=== PATIENT | female | born 1945 | race Caucasian/White ===

== ENCOUNTER 2017-07-30 16:39 | Emergency (ER) | payer MEDICARE, OTHER ==
[2017-07-30] MEDS ORDERED: SODIUM CHLORIDE 0.9% 1,000 ML IV ONE (17:30)
--- NOTE | 2017-07-30 17:43 | ED Physician Documentation ---
History of Present Illness - Stated complaint Stated Complaint: General med eval - Chief complaint Chief Complaint: General - History obtained from History obtained from: Patient, Family - History of Present Illness Timing: Today Pain level max: 0 Pain level now: 0 Improved by: nothing Worsened by: nothing - Additonal information Additional information: Patient is a 72-year-old female recently moved to the [place] who is being treated for metastatic breast cancer with chemotherapy at [facility]. She is under palliative care as well. Family noticed her to be slightly confused today, slower to respond and slower to move around. She uses a cane normally. No fevers. No abdominal pain. No chest pain. No fall. No head injury. No headache. No medication changes. No focal neurological deficits Review of Systems Ten Systems: 10 systems reviewed and negative Constitutional: denies: Fever, Chills Ears: denies: Ear pain Nose: denies: Rhinorrhea / runny nose, Congestion Throat: denies: Sore throat Cardiac: denies: Chest pain / pressure Respiratory: denies: Cough GI: denies: Nausea, Vomiting, Diarrhea Skin: denies: Rash Musculoskeletal: denies: Neck pain, Back pain Neurologic: denies: Focal weakness, Numbness, Seizure, Headache PD PAST MEDICAL HISTORY - Past Medical History Past Medical History: Yes Cardiovascular: Hypertension Respiratory: COPD Endocrine/Autoimmune: Type 2 diabetes 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 Musculoskeletal: Other - Past Surgical History Past Surgical History: Yes General: Cholecystectomy, Appendectomy HEENT: Tonsil/Adenoidectomy - Present Medications Home Medications: Ambulatory Orders Medication Instructions Recorded Confirmed Atorvastatin [Lipitor] 80 mg 07/30/17 Cephalexin [Keflex] 500 mg PO Q6H #28 capsule 07/30/17 Ibuprofen 400 mg PO BID 07/30/17 07/30/17 Insulin NPH Hum/Reg Insulin Hm 100 unit 07/30/17 [Novolin 70-30 100 Unit/ml Vial] Sertraline HCl 100 07/30/17 - Allergies Allergies/Adverse Reactions: Allergies Allergy/AdvReac Type Severity Reaction Status Date / Time No Known Drug Allergies Allergy Verified 07/30/17 17:02 - Social History Does the pt smoke?: No Smoking Status: Never smoker Does the pt have substance abuse?: No - Immunizations Immunizations are current?: Yes PD ED PE NORMAL - Vitals Vital signs reviewed: Yes - General General: Alert and oriented X 3, No acute distress, Well developed/nourished - HEENT HEENT: PERRL, Moist mucous membranes - Neck Neck: Supple, no meningeal sign - Cardiac Cardiac: RRR, Strong equal pulses - Respiratory Respiratory: No respiratory distress, Clear bilaterally - Abdomen Abdomen: Soft, Non tender, Non distended - Back Back: No CVA TTP, No spinal TTP - Derm Derm: Warm and dry, No rash - Extremities Extremities: No edema, No calf tenderness / cord - Neuro Neuro: Alert and oriented X 3, department clinician 2-12 intact, No motor deficit, No sensory deficit, Normal speech Eye Opening: Spontaneous Motor: Obeys Commands Verbal: Oriented GCS Score: 15 - Psych Psych: Normal mood, Normal affect Results - Vitals Vitals: Vital Signs - 24 hr 07/30/17 07/30/17 07/30/17 16:52 17:14 18:32 Temperature 36.3 C L Heart Rate 98 87 79 Respiratory 16 15 14 Rate Blood Pressure 143/85 H 132/89 H 126/71 O2 Saturation 94 94 93 07/30/17 07/30/17 18:52 19:15 Temperature 36.6 C Heart Rate 80 79 Respiratory 13 14 Rate Blood Pressure 126/81 H 144/79 H O2 Saturation 91 L 95 Oxygen O2 Source Room air - Labs Labs: Laboratory Tests 07/30/17 07/30/17 07/30/17 17:00 17:35 17:35 WBC 3.7 L RBC 4.19 L Hgb 12.8 Hct 37.8 MCV 90.1 MCH 30.6 MCHC 33.9 RDW 15.6 H Plt Count 122 L MPV 9.2 Neut # (Auto) 2.3 Lymph # (Auto) 0.9 L [facility] # (Auto) 0.3 Eos # (Auto) 0.0 Baso # (Auto) 0.0 Absolute Nucleated RBC 0.00 Nucleated RBC % 0.0 Sodium 137 Potassium 3.6 Chloride 101 Carbon Dioxide 27 Anion Gap 9.0 BUN 13 Creatinine 0.7 Estimated GFR (MDRD) 82 L Glucose 176 H POC Whole Bld Glucose 199 H Calcium 8.9 Total Bilirubin 0.8 AST 37 ALT 24 Alkaline Phosphatase 139 H Troponin I Total Protein 6.9 Albumin 3.9 Globulin 3.0 Albumin/Globulin Ratio 1.3 Lipase 20 L Urine Color Urine Clarity Urine pH Ur Specific [place] Urine Protein Urine Glucose (UA) Urine Ketones Urine Occult Blood Urine Nitrite Urine Bilirubin Urine Urobilinogen Ur Leukocyte Esterase Urine RBC Urine WBC Ur Squamous Epith Cells Urine Bacteria Ur Microscopic Review Urine Culture Comments 07/30/17 07/30/17 17:35 18:00 WBC RBC Hgb Hct MCV MCH MCHC RDW Plt Count MPV Neut # (Auto) Lymph # (Auto) [facility] # (Auto) Eos # (Auto) Baso # (Auto) Absolute Nucleated RBC Nucleated RBC % Sodium Potassium Chloride Carbon Dioxide Anion Gap BUN Creatinine Estimated GFR (MDRD) Glucose POC Whole Bld Glucose Calcium Total Bilirubin AST ALT Alkaline Phosphatase Troponin I < 0.04 Total Protein Albumin Globulin Albumin/Globulin Ratio Lipase Urine Color YELLOW Urine Clarity CLOUDY Urine pH 6.0 Ur Specific [place] >=1.030 H Urine Protein TRACE Urine Glucose (UA) NEGATIVE Urine Ketones NEGATIVE Urine Occult Blood MODERATE H Urine Nitrite NEGATIVE Urine Bilirubin NEGATIVE Urine Urobilinogen 0.2 (NORMAL) Ur Leukocyte Esterase SMALL H Urine RBC 6-10 H Urine WBC 11-25 H Ur Squamous Epith Cells NONE SEEN Urine Bacteria Many H Ur Microscopic Review INDICATED Urine Culture Comments INDICATED - Rads (name of study) head CT Radiology: Prelim report reviewed, EMP read contemporaneously, See rad report ( Permeative, destructive malignant process involving the left temporoparietal occipital bones with minimal encroachment on intracranial structures. Consider contrast-enhanced MRI for further evaluation. No acute infarction or hemorrhage ) PD MEDICAL DECISION MAKING - ED course Complexity details: reviewed results, re-evaluated patient, considered differential, d/w patient, d/w family ED course: Patient is a 72-year-old female who presents to the emergency department with a UTI today. Given IV Rocephin and IV fluids. Feels better. Confusion seemed to improve in the emergency department and she is ambulating better with her cane. Family thinks that she is closer to her normal baseline. No evidence of focal neurological deficit. NIH stroke scale of 0. No acute findings on head CT. Family states that the lesion on head CT and the bone is chronic and unchanged. Will place on antibiotics for home. Patient and family counseled regarding signs and symptoms for which I believe and urgent re-evaluation would be necessary. Patient with good understanding of and agreement to plan and is comfortable going home at this time This document was made in part using voice recognition software. While efforts are made to proofread this document, sound alike and grammatical errors may occur. - Sepsis Event Vital Signs: Vital Signs - 24 hr 07/30/17 07/30/17 07/30/17 16:52 17:14 18:32 Temperature 36.3 C L Heart Rate 98 87 79 Respiratory 16 15 14 Rate Blood Pressure 143/85 H 132/89 H 126/71 O2 Saturation 94 94 93 07/30/17 07/30/17 18:52 19:15 Temperature 36.6 C Heart Rate 80 79 Respiratory 13 14 Rate Blood Pressure 126/81 H 144/79 H O2 Saturation 91 L 95 Oxygen O2 Source Room air Departure - Departure Disposition: Home, Self Care Clinical Impression: UTI (urinary tract infection) Qualifiers: Urinary tract infection type: acute cystitis Hematuria presence: without hematuria Qualified Code(s): N30.00 - Acute cystitis without hematuria Condition: Good Instructions: ED UTI Cystitis Female Follow-Up: your,doctor in 1 week [Other] Prescriptions: Cephalexin [Keflex] 500 mg PO Q6H #28 capsule Comments: Take all antibiotics until gone. Return if Destiny worsens. Discharge Date/Time: 07/30/17 19:15
[2017-07-30 18:06] LABS: BASOPHILS % (AUTO) 1.3 %; EOSINOPHILS % (AUTO) 0.8 %; HGB - HEMOGLOBIN 12.8 g/dL (12.0-16.0); LYMPHOCYTES # (AUTO) 0.9 10^3/uL (1.5-3.5); LYMPHOCYTES % (AUTO) 24.7 %; MEAN CORPUSCULAR HEMOGLOBIN 30.6 pg (27.0-31.0); MEAN CORPUSCULAR HGB CONC 33.9 g/dL (32.0-36.0); MEAN CORPUSCULAR VOLUME 90.1 fL (81.0-99.0); MEAN PLATELET VOLUME 9.2 fL (7.9-10.8); MONOCYTES # (AUTO) 0.3 10^3/uL (0.0-1.0); MONOCYTES % (AUTO) 9.4 %; NEUTROPHILS # (AUTO) 2.3 10^3/uL (1.5-6.6); NEUTROPHILS % (AUTO) 63.8 %; PLT - PLATELET COUNT 122 10^3/uL (130-450); RED BLOOD COUNT 4.19 10^6/uL (4.20-5.40); RED CELL DISTRIBUTION WIDTH 15.6 % (12.0-15.0); WHITE BLOOD COUNT 3.7 x10^3/uL (4.8-10.8)
--- NOTE | 2017-07-30 18:07 | CT Report ---
Procedure Date: 07/30/2017 Accession Number: [id number] / [id number] Procedure: CT - Head W/O CPT Code: FULL RESULT: EXAM: CT HEAD EXAM DATE: 07/30/2017 05:54 PM. CLINICAL HISTORY: ALOC, h/o brain mets. COMPARISON: None. TECHNIQUE: Multiaxial CT images were obtained from the foramen magnum to the vertex. Reformats: Coronal. IV contrast: None. In accordance with CT protocol optimization, one or more of the following dose reduction techniques were utilized for this exam: automated exposure control, adjustment of mA and/or KV based on patient size, or use of iterative reconstructive technique. FINDINGS: Parenchyma: Patchy periventricular and subcortical low density white matter changes. No evidence of acute infarction or hemorrhage. Extraaxial Spaces: Normal for age. No subdural or epidural collections identified. Ventricles: Normal in size and position. Sinuses and Orbits: Imaged paranasal sinuses, orbits, and mastoids show no significant abnormality. Bones: Permeative distractive lesion involving the posterior left temporoparietal and occipital bones. There is soft tissue thickening along the outer skull table with some intracranial extension however no significant cerebral mass effect. Other: None. IMPRESSION: 1. Permeative, destructive malignant process involving the left temporoparietal occipital bones with minimal encroachment on intracranial structures. Consider contrast-enhanced MRI for further evaluation. 2. No acute or infarction or hemorrhage. RADIA
[2017-07-30 18:19] LABS: BILIRUBIN,URINE NEGATIVE (NEGATIVE); GLUCOSE, URINE (UA) NEGATIVE (NEGATIVE); KETONES,URINE (UA) NEGATIVE (NEGATIVE); LEUKOCYTE ESTERASE, URINE SMALL (NEGATIVE); NITRITE,URINE NEGATIVE (NEGATIVE); OCCULT BLOOD,URINE MODERATE (NEGATIVE); PROTEIN,URINE TRACE mg/dL (NEGATIVE); UROBILINOGEN,URINE 0.2 (NORMAL) E.U./dL (NORMAL)
[2017-07-30 18:20] LABS: ALBUMIN 3.9 g/dL (3.2-5.5); ALBUMIN/GLOBULIN RATIO 1.3 (1.0-2.2); BILIRUBIN,TOTAL 0.8 mg/dL (0.2-1.0); CALCIUM 8.9 mg/dL (8.5-10.3); CREATININE 0.7 mg/dL (0.4-1.0); TOTAL PROTEIN 6.9 g/dL (6.7-8.2)
[2017-07-30 18:30] LABS: CLARITY,URINE CLOUDY (CLEAR)
[2017-07-30 18:31] LABS: BACTERIA,URINE Many /HPF (None Seen); SQUAMOUS EPITHELIAL CELL,UR NONE SEEN (<= Few)
[2017-07-30] MEDS ORDERED: cefTRIAXone 1 GM VIAL IVP STA (18:42)
[2017-07-30 19:17] VITALS: BP 144/79
== END 2017-07-30 19:15 | disposition home or self-care (01) ==
LOC: ED 16:39
DX: N30.00 Acute cystitis without hematuria (principal); I10 Essential (primary) hypertension; E11.9 Type 2 diabetes mellitus without complications; C50.919 Malignant neoplasm of unspecified site of unspecified female breast; Z79.4 Long term (current) use of insulin
CPT/HCPCS: 36415; 51701; 70450; 80053; 81001; 81003; 83690; 84484; 85025; 87077; 87086; 87181; 96374; 99284

== ENCOUNTER 2017-09-06 15:08 | Emergency (ER) | payer MEDICARE ==
[2017-09-06 15:17] VITALS: BP 127/79
--- NOTE | 2017-09-06 16:13 | XRAY Report ---
Procedure Date: 09/06/2017 Accession Number: [id number] / [id number] Procedure: XR - Shoulder 3 View RT CPT Code: FULL RESULT: EXAM: RIGHT SHOULDER RADIOGRAPHY EXAM DATE: 09/06/2017 03:52 PM. CLINICAL HISTORY: Pain right shoulder while reaching. Additional history of metastatic cancer COMPARISON: None. TECHNIQUE: 3 views. FINDINGS: Bones: Minimally displaced and angulated transverse fracture of the distal third of the clavicle without intra-articular involvement. Proximal fracture fragment is displaced approximately 1 cortical width superiorly with minimal apex superior angulation. No additional fracture demonstrated. Diffuse permeative appearance of the visualized osseous structures, particularly the humerus, scapula and clavicle, though also likely the ribs, in keeping with history of metastatic disease. Joints: No dislocation/subluxation. Minimal osteophytic spurring at both the acromioclavicular and glenohumeral joints. Soft tissues: Visualized hemithorax is unremarkable. IMPRESSION: Minimally displaced and angulated transverse pathologic fracture of the distal third of the clavicle. RADIA
--- NOTE | 2017-09-06 16:19 | ED Physician Documentation ---
PD HPI UPPER EXT INJURY - Stated complaint Stated Complaint: GLF/RT SHOULDER PX - Chief complaint Chief Complaint: Ext Problem - History obtained from History obtained from: Patient, Family - History of Present Illness Location: Right, Shoulder Type of injury: Twist (she just reached out to pull an object and felt a pop at clavicle area. Pain with ROM shoulder.). 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 Musculoskeletal: Other - Past Surgical History Past Surgical History: Yes General: Cholecystectomy, Appendectomy HEENT: Tonsil/Adenoidectomy - Present Medications Home Medications: Ambulatory Orders Medication Instructions Recorded Confirmed Atorvastatin [Lipitor] 80 mg 07/30/17 Cephalexin [Keflex] 500 mg PO Q6H #28 capsule 07/30/17 Ibuprofen 400 mg PO BID 07/30/17 07/30/17 Insulin NPH Hum/Reg Insulin Hm 100 unit 07/30/17 [Novolin 70-30 100 Unit/ml Vial] Sertraline HCl 100 07/30/17 HYDROcod/ACETAM 5/325 [Martha 5/325] 1 tab PO Q6H PRN #15 tablet 09/06/17 - Allergies Allergies/Adverse Reactions: Allergies Allergy/AdvReac Type Severity Reaction Status Date / Time No Known Drug Allergies Allergy Verified 09/06/17 15:17 - Social History Does the pt smoke?: No Smoking Status: Never smoker Does the pt have substance abuse?: No - Immunizations Immunizations are current?: Yes PD ED PE NORMAL - Vitals Vital signs reviewed: Yes - General General: Alert and oriented X 3, No acute distress, Well developed/nourished - Derm Derm: Normal color, Warm and dry - Extremities Extremities: Other (right distal clavicle tender. Decreased ROM of the shoulder. ) - Neuro Neuro: No motor deficit, No sensory deficit Results - Vitals Vitals: Oxygen O2 Source Room air PD MEDICAL DECISION MAKING - ED course Complexity details: reviewed results (pathologic clavicle fracture - likely poor healing. Consider surgical options if remains symptomatic. ), considered differential, d/w patient - Sepsis Event Vital Signs: Oxygen O2 Source Room air Departure - Departure Disposition: 01 Home, Self Care Clinical Impression: Metastatic breast cancer Clavicle fracture Qualifiers: Encounter type: initial encounter Clavicle location: shaft Fracture type: closed Fracture alignment: nondisplaced Laterality: right Qualified Code(s): S42.024A - Nondisplaced fracture of shaft of right clavicle, initial encounter for closed fracture Condition: Stable Record reviewed to determine appropriate education?: Yes Instructions: ED Fx Clavicle Follow-Up: [facility] [Provider Group] Prescriptions: HYDROcod/ACETAM 5/325 [Martha 5/325] 1 tab PO Q6H PRN #15 tablet PRN Reason: Pain Comments: Use a sling for comfort for the shoulder and avoid overhead reaching, push pull , heavy lifting. Light use of the arm and use of the wrist and hand are okay. The fracture does appear to be at the site of a bone lesion from your cancer. It therefore may not heal enough to be solid. Follow-up with orthopedics in about 1-2 weeks to see how it is doing. If it is not healing and continues with symptoms, there could be potential surgical interventions such as even removing the end of the collarbone so does not continue to hurt. Discharge Date/Time: 09/06/17 17:30
[2017-09-06] MEDS ORDERED: ACETAMINOPHEN 325 MG TABLET PO STA (16:40)
[2017-09-06] MEDS ORDERED: traMADol 50 MG TABLET PO STA (16:40)
== END 2017-09-06 17:30 | disposition home or self-care (01) ==
LOC: ED 15:08
DX: S42.024A Nondisplaced fracture of shaft of right clavicle, initial encounter for closed fracture (principal); X50.1XXA Overexertion from prolonged static or awkward postures, initial encounter; Y92.009 Unspecified place in unspecified non-institutional (private) residence as the place of occurrence of the external cause; C79.9 Secondary malignant neoplasm of unspecified site; I10 Essential (primary) hypertension; J44.9 Chronic obstructive pulmonary disease, unspecified; E11.9 Type 2 diabetes mellitus without complications; Z85.3 Personal history of malignant neoplasm of breast; Z79.4 Long term (current) use of insulin
CPT/HCPCS: 73030; 99283; A9270

== ENCOUNTER 2017-10-27 11:04 | Outpatient (CLI) | payer MEDICARE | END 2017-10-27 11:05 | disposition critical access hospital (66) | LOC: EMS 11:04 | PROVIDERS: ATTEND Surgery | DX: M79.601 Pain in right arm (principal) | CPT/HCPCS: A0425; A0427 ==

== ENCOUNTER 2017-10-27 11:25 | Emergency (ER) | payer MEDICARE ==
[2017-10-27] MEDS ORDERED: HYDROmorphone 1 MG/ML CARPUJECT IVP STA (12:16)
--- NOTE | 2017-10-27 12:18 | ED Physician Documentation ---
PD HPI UPPER EXT INJURY - Stated complaint Stated Complaint: R ARM PAIN - Chief complaint Chief Complaint: Ext Problem - History obtained from History obtained from: Patient, Family - History of Present Illness Location: Right, Arm Type of injury: Other (states has fallen several times in the past.) Where injury occurred: Home Timing - onset: Other (increased pain today) Timing - details: Gradual onset Pain level max: 8 Pain level now: 8 Improved by: Rest, Ice, Immobilization Worsened by: Moving, Palpating Associated symptoms: No: Weakness, Numbness, Tingling, Swelling Contributing factors: Other (metastatic breast cancer to bone) - Additonal information Additional information: currently undergoing radiation treatment. Patient states that she occasionally takes hydrocodone, 5 mg as needed for pain. Otherwise uses CBD oil. 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 Musculoskeletal: Other - Past Surgical History Past Surgical History: Yes General: Cholecystectomy, Appendectomy HEENT: Tonsil/Adenoidectomy - Present Medications Home Medications: Ambulatory Orders Medication Instructions Recorded Confirmed Insulin NPH Hum/Reg Insulin Hm 30 unit SQ BID 07/30/17 10/27/17 [Novolin 70-30 100 Unit/ml Vial] Sertraline HCl 100 mg PO DAILY 07/30/17 10/27/17 Atorvastatin Calcium 80 mg PO DAILY 10/27/17 10/27/17 Hydrocodone/Acetaminophen 1 tab PO Q6H PRN MDD 4 10/27/17 10/27/17 [Hydrocodone-Acetamin 10-325 mg] Omeprazole [PriLOSEC] 20 mg PO DAILY 10/27/17 10/27/17 amLODIPine [Norvasc] 5 mg PO DAILY 10/27/17 10/27/17 - Allergies Allergies/Adverse Reactions: Allergies Allergy/AdvReac Type Severity Reaction Status Date / Time No Known Drug Allergies Allergy Verified 09/06/17 15:17 - Social History Does the pt smoke?: No Smoking Status: Never smoker Does the pt have substance abuse?: No - Immunizations Immunizations are current?: Yes PD ED PE NORMAL - Vitals Vital signs reviewed: Yes - General General: Alert and oriented X 3, No acute distress - HEENT HEENT: Atraumatic, PERRL, Moist mucous membranes - Neck Neck: Supple, no meningeal sign, No bony TTP - Cardiac Cardiac: RRR - Respiratory Respiratory: No respiratory distress, Clear bilaterally - Abdomen Abdomen: Soft, Non tender, Non distended - Back Back: No spinal TTP - Derm Derm: Warm and dry, No rash - Extremities Extremities: Other (TTP over the entire R humerus. unable to move 2/2 pain. No pain over forearm or clavicle. NVI) - Neuro Neuro: Alert and oriented X 3 - Psych Psych: Normal mood, Normal affect Results - Vitals Vitals: Vital Signs - 24 hr 10/27/17 10/27/17 10/27/17 11:28 11:41 12:40 Temperature 36.4 C L Heart Rate 106 H 98 89 Respiratory 16 16 16 Rate Blood Pressure 139/96 H 127/88 H 142/101 H O2 Saturation 94 97 94 10/27/17 10/27/17 10/27/17 15:53 16:57 20:00 Temperature Heart Rate 96 93 102 H Respiratory 18 14 18 Rate Blood Pressure 122/80 120/81 H 105/69 O2 Saturation 96 97 100 10/27/17 22:01 Temperature Heart Rate 90 Respiratory 16 Rate Blood Pressure 107/69 O2 Saturation 100 Oxygen O2 Source Room air - Labs Labs: Laboratory Tests 10/27/17 10/27/17 10/27/17 12:36 12:36 15:36 WBC 3.4 L RBC 4.27 Hgb 12.8 Hct 37.4 MCV 87.6 MCH 30.0 MCHC 34.3 RDW 15.7 H Plt Count 83 L MPV 9.1 Neut # (Auto) 2.6 Lymph # (Auto) 0.4 L [place] # (Auto) 0.3 Eos # (Auto) 0.1 Baso # (Auto) 0.0 Absolute Nucleated RBC 0.00 Nucleated RBC % 0.0 Sodium 141 Potassium 3.6 Chloride 104 Carbon Dioxide 29 Anion Gap 8.0 BUN 11 Creatinine 0.7 Estimated GFR (MDRD) 82 L Glucose 196 H Calcium 10.1 Total Bilirubin 1.0 AST 39 ALT 16 Alkaline Phosphatase 123 H Total Protein 7.3 Albumin 4.2 Globulin 3.1 Albumin/Globulin Ratio 1.4 Lipase 22 Urine Color YELLOW Urine Clarity CLEAR Urine pH 6.0 Ur Specific [place] 1.020 Urine Protein NEGATIVE Urine Glucose (UA) NEGATIVE Urine Ketones NEGATIVE Urine Occult Blood NEGATIVE Urine Nitrite NEGATIVE Urine Bilirubin NEGATIVE Urine Urobilinogen 0.2 (NORMAL) Ur Leukocyte Esterase NEGATIVE Ur Microscopic Review NOT INDICATED Urine Culture Comments NOT INDICATED - Rads (name of study) R humerus xray Radiology: Prelim report reviewed, EMP read contemporaneously, See rad report (Humerus fracture ) Procedures - Splint (location) R upper arm Splint applied by: Physician, Tech Type of splint: Sugar tong Other: Patient tolerated well, No complications, Neurovascular intact, Sling provided PD MEDICAL DECISION MAKING - ED course Complexity details: reviewed results, re-evaluated patient, considered differential, d/w patient, d/w family, d/w fitness consultant ED course: Patient is a 72-year-old female who presents to the emergency department with a right midshaft humerus fracture. Placed in a sugar tong splint of the upper extremity and placed in a sling. We will have her follow-up with orthopedics. Neurovascularly intact. She does have metastatic breast cancer to the bones as well. Family was concerned about being able to take care of her, therefore social work was consulted and respite placement was found with [facility]. Orders were written and further orders will be written by her PCP. Patient and family counseled regarding signs and symptoms for which I believe and urgent re- evaluation would be necessary. Patient with good understanding of and agreement to plan and is comfortable going home at this time This document was made in part using voice recognition software. While efforts are made to proofread this document, sound alike and grammatical errors may occur. - Sepsis Event Vital Signs: Vital Signs - 24 hr 10/27/17 10/27/17 10/27/17 11:28 11:41 12:40 Temperature 36.4 C L Heart Rate 106 H 98 89 Respiratory 16 16 16 Rate Blood Pressure 139/96 H 127/88 H 142/101 H O2 Saturation 94 97 94 10/27/17 10/27/17 10/27/17 15:53 16:57 20:00 Temperature Heart Rate 96 93 102 H Respiratory 18 14 18 Rate Blood Pressure 122/80 120/81 H 105/69 O2 Saturation 96 97 100 10/27/17 22:01 Temperature Heart Rate 90 Respiratory 16 Rate Blood Pressure 107/69 O2 Saturation 100 Oxygen O2 Source Room air Departure - Departure Disposition: 01 Home, Self Care Clinical Impression: Humerus fracture Qualifiers: Encounter type: initial encounter Humerus Location: shaft Fracture type: closed Fracture morphology: transverse Fracture alignment: displaced Laterality: right Qualified Code(s): S42.321A - Displaced transverse fracture of shaft of humerus, right arm, initial encounter for closed fracture Condition: Good Instructions: ED Fx Upper Ext Follow-Up: [facility] [Provider Group] - Within 1 week your,doctor in 1 week [Other] Comments: Return if you worsen. Continue the hydrocodone as needed for pain. Follow up with orthopedics for further care.
[2017-10-27 12:41] LABS: BASOPHILS % (AUTO) 0.9 %; EOSINOPHILS # (AUTO) 0.1 10^3/uL (0.0-0.7); EOSINOPHILS % (AUTO) 1.9 %; HGB - HEMOGLOBIN 12.8 g/dL (12.0-16.0); LYMPHOCYTES # (AUTO) 0.4 10^3/uL (1.5-3.5); MEAN CORPUSCULAR HGB CONC 34.3 g/dL (32.0-36.0); MEAN CORPUSCULAR VOLUME 87.6 fL (81.0-99.0); MEAN PLATELET VOLUME 9.1 fL (7.9-10.8); MONOCYTES # (AUTO) 0.3 10^3/uL (0.0-1.0); MONOCYTES % (AUTO) 9.3 %; NEUTROPHILS # (AUTO) 2.6 10^3/uL (1.5-6.6); NEUTROPHILS % (AUTO) 75.9 %; PLT - PLATELET COUNT 83 10^3/uL (130-450); RED BLOOD COUNT 4.27 10^6/uL (4.20-5.40); RED CELL DISTRIBUTION WIDTH 15.7 % (12.0-15.0); WHITE BLOOD COUNT 3.4 x10^3/uL (4.8-10.8)
[2017-10-27] MEDS ORDERED: SODIUM CHLORIDE 0.9% 1,000 ML IV ONE (12:47)
[2017-10-27 12:58] LABS: ALBUMIN 4.2 g/dL (3.2-5.5); ALBUMIN/GLOBULIN RATIO 1.4 (1.0-2.2); CALCIUM 10.1 mg/dL (8.5-10.3); CREATININE 0.7 mg/dL (0.4-1.0); TOTAL PROTEIN 7.3 g/dL (6.7-8.2)
--- NOTE | 2017-10-27 13:12 | XRAY Report ---
Reason: fall, R arm pain Procedure Date: 10/27/2017 Accession Number: [id number] / [id number] Procedure: XR - Humerus RT CPT Code: FULL RESULT: EXAM: RIGHT HUMERUS RADIOGRAPHY EXAM DATE: 10/27/2017 12:59 PM. CLINICAL HISTORY: Fall, R arm pain. COMPARISON: None. TECHNIQUE: 2 views. FINDINGS: Bones: There is a moderately displaced fracture of the humerus diaphysis with mild telescoping of fragments. Joints: No effusions or subluxations in the visualized shoulder or elbow joints. Soft Tissues: There is overlying soft tissue swelling. IMPRESSION: Humerus fracture RADIA
[2017-10-27 15:48] LABS: BILIRUBIN,URINE NEGATIVE (NEGATIVE); GLUCOSE, URINE (UA) NEGATIVE (NEGATIVE); KETONES,URINE (UA) NEGATIVE (NEGATIVE); LEUKOCYTE ESTERASE, URINE NEGATIVE (NEGATIVE); NITRITE,URINE NEGATIVE (NEGATIVE); OCCULT BLOOD,URINE NEGATIVE (NEGATIVE); PROTEIN,URINE NEGATIVE (NEGATIVE); UROBILINOGEN,URINE 0.2 (NORMAL) E.U./dL (NORMAL)
[2017-10-27 15:59] LABS: CLARITY,URINE CLEAR (CLEAR)
[2017-10-27 22:02] VITALS: BP 107/69
[2017-10-27] MEDS ORDERED: HYDROcod/ACETAM 5/325 MG TABLET PO STA (22:02)
== END 2017-10-27 23:05 | disposition home or self-care (01) ==
LOC: EDUNIT# → ED 11:25
DX: S42.321A Displaced transverse fracture of shaft of humerus, right arm, initial encounter for closed fracture (principal); W18.30XA Fall on same level, unspecified, initial encounter; Y92.009 Unspecified place in unspecified non-institutional (private) residence as the place of occurrence of the external cause; C50.919 Malignant neoplasm of unspecified site of unspecified female breast; Z92.3 Personal history of irradiation; I10 Essential (primary) hypertension; E11.9 Type 2 diabetes mellitus without complications; Z79.4 Long term (current) use of insulin
CPT/HCPCS: 29105; 36415; 51701; 73060; 80053; 81003; 83690; 85025; 96361; 96374; 99284; A9270; J1170; 81001; 87086

== ENCOUNTER 2017-11-01 09:53 | Outpatient (CLI) | payer MEDICARE | END 2017-11-01 09:54 | disposition critical access hospital (66) | LOC: EMS 09:53 | PROVIDERS: ATTEND Surgery | DX: R53.1 Weakness (principal); R11.0 Nausea; R52 Pain, unspecified ==

== ENCOUNTER 2017-11-01 10:13 | Emergency (ER) | payer MEDICARE ==
[2017-11-01] MEDS ORDERED: SODIUM CHLORIDE 0.9% 1,000 ML IV ONE (10:26)
--- NOTE | 2017-11-01 10:30 | ED Physician Documentation ---
History of Present Illness - Stated complaint Stated Complaint: WEAKNESS - Chief complaint Chief Complaint: General - History obtained from History obtained from: Patient, EMS - History of Present Illness Timing: How many days ago (5) - Additonal information Additional information: 72-year-old female with advanced breast cancer with metastases to the bone has h ad a fall 5 days ago and fractured her right humerus. She is walker dependent and she has been at home she has been having difficulty getting in and out of bed into the bathroom. She has developed weakness and she has begun vomiting as well. She feels ill and weak. She is at home with a son the and her [id number]. Review of Systems Constitutional: reports: Fatigue, Sweats. denies: Fever Eyes: denies: Decreased vision Ears: denies: Ear pain Nose: denies: Rhinorrhea / runny nose, Congestion Throat: denies: Sore throat Cardiac: denies: Chest pain / pressure, Palpitations Respiratory: reports: Cough. denies: Dyspnea GI: reports: Nausea, Vomiting. denies: Abdominal Pain, Constipation, Diarrhea, Bloody / black stool : reports: Incontinent. denies: Dysuria, Frequency Skin: denies: Rash Musculoskeletal: reports: Extremity pain. denies: Neck pain, Back pain Neurologic: reports: Generalized weakness. denies: Focal weakness, Numbness PD PAST MEDICAL HISTORY - Past Medical History Cardiovascular: Hypertension Respiratory: COPD Endocrine/Autoimmune: Type 2 diabetes HOSIERY PAIRER: Breast cancer Musculoskeletal: Other - Past Surgical History Past Surgical History: Yes General: Cholecystectomy, Appendectomy HEENT: Tonsil/Adenoidectomy - Present Medications Home Medications: Ambulatory Orders Medication Instructions Recorded Confirmed Insulin NPH Hum/Reg Insulin Hm 30 unit SQ BID 07/30/17 10/27/17 [Novolin 70-30 100 Unit/ml Vial] Sertraline HCl 100 mg PO DAILY 07/30/17 10/27/17 Atorvastatin Calcium 80 mg PO DAILY 10/27/17 10/27/17 Hydrocodone/Acetaminophen 1 tab PO Q6H PRN MDD 4 10/27/17 10/27/17 [Hydrocodone-Acetamin 10-325 mg] Omeprazole [PriLOSEC] 20 mg PO DAILY 10/27/17 10/27/17 amLODIPine [Norvasc] 5 mg PO DAILY 10/27/17 10/27/17 - Allergies Allergies/Adverse Reactions: Allergies Allergy/AdvReac Type Severity Reaction Status Date / Time No Known Drug Allergies Allergy Verified 09/06/17 15:17 - Social History Does the pt smoke?: No Smoking Status: Never smoker Does the pt have substance abuse?: No - Immunizations Immunizations are current?: Yes PD ED PE NORMAL - Vitals Vital signs reviewed: Yes (tachy and hypertensive ) - General General: No acute distress, Well developed/nourished, Other (The patient appears pale and is slow to respond but responds appropriately ) - HEENT HEENT: Atraumatic, PERRL, EOMI - Neck Neck: Supple, no meningeal sign, No bony TTP - Cardiac Cardiac: No murmur, Other (tachy) - Respiratory Respiratory: No respiratory distress, Clear bilaterally - Abdomen Abdomen: Soft, Non tender - Back Back: No CVA TTP, No spinal TTP - Derm Derm: Normal color, Warm and dry, No rash - Extremities Extremities: No edema, Other (The right upper ext is in a sling ) - Neuro Neuro: vender 2-12 intact, No motor deficit, No sensory deficit, Other (speech is dysarthric consistent with dry mucous membranes. ) Eye Opening: Spontaneous Motor: Obeys Commands Verbal: Oriented GCS Score: 15 - Psych Psych: Normal mood, Normal affect Results - Vitals Vitals: Vital Signs - 24 hr 11/01/17 11/01/17 11/01/17 10:15 11:56 13:19 Temperature 36.9 C Heart Rate 107 H 92 91 Respiratory 14 16 16 Rate Blood Pressure 132/80 H 120/82 H 132/79 H O2 Saturation 93 97 99 Oxygen O2 Source Room air - Labs Labs: Laboratory Tests 11/01/17 11/01/17 11/01/17 10:45 10:45 10:45 WBC 3.8 L RBC 4.30 Hgb 12.8 Hct 37.3 MCV 86.6 MCH 29.8 MCHC 34.5 RDW 16.6 H Plt Count 83 L MPV 9.6 Neut # (Auto) 2.9 Lymph # (Auto) 0.4 L Hudson # (Auto) 0.5 Eos # (Auto) 0.0 Baso # (Auto) 0.0 Absolute Nucleated RBC 0.00 Nucleated RBC % 0.0 Sodium 141 Potassium 3.6 Chloride 100 L Carbon Dioxide 28 Anion Gap 13.0 BUN 23 H Creatinine 0.8 Estimated GFR (MDRD) 71 L Glucose 180 H Lactic Acid Calcium 10.5 H Total Bilirubin 1.2 H AST 56 H ALT 18 Alkaline Phosphatase 136 H Troponin I < 0.04 Total Protein 7.4 Albumin 4.1 Globulin 3.3 Albumin/Globulin Ratio 1.2 Lipase 22 Urine Color Urine Clarity Urine pH Ur Specific Boyd Urine Protein Urine Glucose (UA) Urine Ketones Urine Occult Blood Urine Nitrite Urine Bilirubin Urine Urobilinogen Ur Leukocyte Esterase Urine RBC Urine WBC Ur Squamous Epith Cells Urine Bacteria Ur Microscopic Review Urine Culture Comments 11/01/17 11/01/17 10:54 10:55 WBC RBC Hgb Hct MCV MCH MCHC RDW Plt Count MPV Neut # (Auto) Lymph # (Auto) Hudson # (Auto) Eos # (Auto) Baso # (Auto) Absolute Nucleated RBC Nucleated RBC % Sodium Potassium Chloride Carbon Dioxide Anion Gap BUN Creatinine Estimated GFR (MDRD) Glucose Lactic Acid 1.3 Calcium Total Bilirubin AST ALT Alkaline Phosphatase Troponin I Total Protein Albumin Globulin Albumin/Globulin Ratio Lipase Urine Color YELLOW Urine Clarity HAZY Urine pH 6.0 Ur Specific Boyd 1.025 Urine Protein NEGATIVE Urine Glucose (UA) NEGATIVE Urine Ketones 15 H Urine Occult Blood NEGATIVE Urine Nitrite POSITIVE H Urine Bilirubin NEGATIVE Urine Urobilinogen 0.2 (NORMAL) Ur Leukocyte Esterase NEGATIVE Urine RBC 0-5 Urine WBC 0-3 Ur Squamous Epith Cells RARE Squamous Urine Bacteria Many H Ur Microscopic Review INDICATED Urine Culture Comments INDICATED Procedures - IVC sono (time) 1020 Bedside IVC sono: IVC measures (cm) (0.82), IVC collapsed c insp (cm) (complete), Dehydration (est 2 liter deficit) PD MEDICAL DECISION MAKING - ED course Complexity details: reviewed old records, reviewed results, re-evaluated patient, considered differential, d/w patient, d/w family ED course: 72 year old female with a history of advanced metastatic breast cancer has had a fall and a fracture of her right humerus and she is walker dependent. Her family is unable to care for her at home adequately with the typical skilled nursing care of getting up and down to the bathroom. The patient has adequate pain control of her fracture. She has had a prior fracture to the clavicle on the right side and this looks like this is fractured again as well. I have spoken to the patient's oncologist Dr. Patria Troncoso and her oncology nurse Dinora Saleh at [facility]. She indicates that she has failed palliative chemotherapy and has shown disease progression on her last scans. They have discontinued chemotherapy and the patient has discontinued radiation therapy that was being given to the spine palliatively. Her oncologist indicates that hospice care is appropriate at this time. Here in the emergency department the patient is dehydrated and and she is administered saline. Her urine is checked there is no evidence of infection today. Her lungs on chest x-ray show multiple metastases and these were previously described according to her oncologist. - Sepsis Event Vital Signs: Vital Signs - 24 hr 11/01/17 11/01/17 11/01/17 10:15 11:56 13:19 Temperature 36.9 C Heart Rate 107 H 92 91 Respiratory 14 16 16 Rate Blood Pressure 132/80 H 120/82 H 132/79 H O2 Saturation 93 97 99 Oxygen O2 Source Room air Departure - Departure Disposition: 01 Home, Self Care Clinical Impression: Metastatic breast cancer, Dehydration Humerus fracture Qualifiers: Encounter type: subsequent encounter Humerus Location: shaft Fracture type: closed Fracture morphology: transverse Fracture alignment: displaced Laterality: right Fracture healing: with routine healing Qualified Code(s): S42.321D - Displaced transverse fracture of shaft of humerus, right arm, subsequent encounter for fracture with routine healing Instructions: ED Dehydration, ED Fx Upper Ext Follow-Up: Earl Cabral MD [Provider Admit Priv/Credential] - [facility] [Provider Group]
[2017-11-01 11:01] LABS: BASOPHILS % (AUTO) 0.9 %; EOSINOPHILS % (AUTO) 0.6 %; HGB - HEMOGLOBIN 12.8 g/dL (12.0-16.0); LYMPHOCYTES # (AUTO) 0.4 10^3/uL (1.5-3.5); LYMPHOCYTES % (AUTO) 10.8 %; MEAN CORPUSCULAR HEMOGLOBIN 29.8 pg (27.0-31.0); MEAN CORPUSCULAR HGB CONC 34.5 g/dL (32.0-36.0); MEAN CORPUSCULAR VOLUME 86.6 fL (81.0-99.0); MEAN PLATELET VOLUME 9.6 fL (7.9-10.8); MONOCYTES # (AUTO) 0.5 10^3/uL (0.0-1.0); MONOCYTES % (AUTO) 12.1 %; NEUTROPHILS # (AUTO) 2.9 10^3/uL (1.5-6.6); NEUTROPHILS % (AUTO) 75.6 %; PLT - PLATELET COUNT 83 10^3/uL (130-450); RED CELL DISTRIBUTION WIDTH 16.6 % (12.0-15.0); WHITE BLOOD COUNT 3.8 x10^3/uL (4.8-10.8)
[2017-11-01 11:16] LABS: ALBUMIN 4.1 g/dL (3.2-5.5); ALBUMIN/GLOBULIN RATIO 1.2 (1.0-2.2); BILIRUBIN,TOTAL 1.2 mg/dL (0.2-1.0); CALCIUM 10.5 mg/dL (8.5-10.3); CREATININE 0.8 mg/dL (0.4-1.0); TOTAL PROTEIN 7.4 g/dL (6.7-8.2)
[2017-11-01 11:18] LABS: BILIRUBIN,URINE NEGATIVE (NEGATIVE); GLUCOSE, URINE (UA) NEGATIVE (NEGATIVE); KETONES,URINE (UA) 15 mg/dL (NEGATIVE); LEUKOCYTE ESTERASE, URINE NEGATIVE (NEGATIVE); NITRITE,URINE POSITIVE (NEGATIVE); OCCULT BLOOD,URINE NEGATIVE (NEGATIVE); PROTEIN,URINE NEGATIVE (NEGATIVE); UROBILINOGEN,URINE 0.2 (NORMAL) E.U./dL (NORMAL)
[2017-11-01 11:20] LABS: CLARITY,URINE HAZY (CLEAR)
[2017-11-01 11:33] LABS: RBC,URINE 0-5 /HPF (0-5)
[2017-11-01 11:34] LABS: BACTERIA,URINE Many /HPF (None Seen); SQUAMOUS EPITHELIAL CELL,UR RARE Squamous (<= Few)
--- NOTE | 2017-11-01 12:03 | XRAY Report ---
Reason: cough weakness Procedure Date: 11/01/2017 Accession Number: [id number] / [id number] Procedure: XR - Chest 2 View X-Ray CPT Code: 41003 FULL RESULT: EXAM: CHEST RADIOGRAPHY EXAM DATE: 11/01/2017 11:50 AM. CLINICAL HISTORY: Cough weakness. COMPARISON: SHOULDER 3 VIEW RT 09/06/2017 3:41 PM HUMERUS RT 10/27/2017 12:38 PM. TECHNIQUE: 2 views. FINDINGS: Lungs/Pleura: No focal consolidation. Diffuse bilateral mild hazy and reticular pulmonary opacities. Focal densities projecting over the right posterolateral 5th and 6th ribs on the frontal view. No pneumothorax or pleural effusion. Mediastinum: Upper normal size of the cardiac silhouette. Tortuous, ectatic thoracic aorta. Other: Healing distal right clavicle fracture with increased displacement compared to prior. Sclerotic appearance of the inferior cervical vertebrae. IMPRESSION: 1. Diffuse bilateral interstitial pulmonary opacities may be chronic or may represent edema or atypical infection. 2. Densities projecting over the right ribs as above may reflect osseous lesions, artifact, or calcified pulmonary or soft tissue lesions. CT may be helpful for further evaluation of these and the other findings described. 3. Healing right clavicle fracture with increased displacement compared to prior. 4. Tortuous, ectatic thoracic aorta. 5. Apparent sclerotic appearance of the inferior cervical vertebrae. [facility]
[2017-11-01 15:38] VITALS: BP 108/88
== END 2017-11-01 16:26 | disposition home or self-care (01) ==
LOC: EDUNIT# → ED 10:13
DX: C50.919 Malignant neoplasm of unspecified site of unspecified female breast (principal); C79.51 Secondary malignant neoplasm of bone; E86.0 Dehydration; S42.321D Displaced transverse fracture of shaft of humerus, right arm, subsequent encounter for fracture with routine healing; W19.XXXD Unspecified fall, subsequent encounter; I10 Essential (primary) hypertension; E11.9 Type 2 diabetes mellitus without complications; Z79.4 Long term (current) use of insulin
CPT/HCPCS: 36415; 71046; 80053; 81001; 81003; 83605; 83690; 84484; 85025; 87040; 87086; 87181; 96360; 99284

== ENCOUNTER 2017-11-01 16:22 | Outpatient (CLI) | payer MEDICARE | END 2017-11-01 16:23 | LOC: EMS 16:22 | PROVIDERS: ATTEND Surgery | DX: R53.1 Weakness (principal); S42.301A Unspecified fracture of shaft of humerus, right arm, initial encounter for closed fracture; W19.XXXA Unspecified fall, initial encounter; R11.0 Nausea; R52 Pain, unspecified | CPT/HCPCS: A0425; A0428; A0429 ==

== ENCOUNTER 2017-11-03 12:30 | Outpatient (CLI) | payer MEDICARE ==
--- NOTE | 2017-11-03 17:32 | CONSULTATION NOTE ---
Palliative Care Consultation - Referral Referring Provider: Dr. Phani Friedman Time of Visit: [id number] Referral setting: [facility] Facility Referral Reason: Metastatic Breast Cancer to bones, lung, skull/ fx right humerus - Information Sources Records reviewed: RN notes reviewed, Previous records reviewed History/Review of Systems obtained from: Patient, Family (most of hx from son Walt at visit) Exam limitations: Clinical condition (patient with poor STM; difficulty tracking conversation) - History of Present Illness Brief History of Present Illness: This is a 72-year-old woman has metastatic breast cancer, initially diagnosed with stage IIa left breast cancer at the lumpectomy and 04/2014, who did have chemo radiation and follow-up. In 2016 she developed metastatic disease involving the bone, lung with multiple pulmonary nodules, and a hilar or mediastinal adenopathy. At that point in time she was started on letrozole and palbociclib the course was complicated by hospitalization for sepsis. At that point in time it was thought she may have had some kind of event, as she has had increasing trouble with memory, slowing of cognition, but still was able to live independently at that time. In February 2017 she was found to have parietal infiltrates bilaterally, but was asymptomatic, and had continued received chemotherapy. She started palliative of paclitaxel 04/02 with dose reductions. Her last dose was given on 09/01/2017 unfortunately she still had disease progression. 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 Psychosocially she did move in with her son in [place], she was originally from [place], in March 2017. Both her son and grandson work, so she has been left at home independently. This worked fine until she started to have multiple falls, fractured her right clavicle, and needing increased personal care. With the fracture of the right clavicle, Home health care was initiated, the patient continued to decline, she was receiving radiation over at [place], this was becoming more complicated with her increasing weakness, confusion, fatigue and developed right arm pain. It is unknown if this was trauma or pathological fx, but on admit to ED 10/27 was diagnosed. At that time as patient's son's home had multiple stairs, it was clear there were noncommittal to meet her personal care needs, as far as toileting, and working, emergency room did help them place her at [facility] that weekend. Unfortunately this was somewhat of a disaster, as it was not high enough level of care. They have been making arrangements for placement a [facility], and she was admitted to [facility] on 11/01 from the ED, she had been admitted to ED again with nausea/vomiting and weakness. I was contacted by Dr. Ma to see patient regarding goals of care, He had been talking to the oncologist, and felt patient was appropriate for hospice care. When met patient, she did have increased confusion, her final urine culture did show E. coli, which would make sense given the difficulty the son had caring for her and her incontinence. She was afebrile, but was feeling quite poorly. She also had uncontrolled right arm pain, her son reports she is quite stoic, but they had been using one half of the 10 mg hydrocodone tablet 2 or 3 times a day in preparation for movement or activity at home. She had tolerated it well without sedation. Patient this point though does not demonstrate ability to ask for pain medication, I suspect it is going to be difficult for her to make her needs known. She understands she is in a rest home, she is unable to tell me the date, season, or year. She is somewhat nonsensical in describing what is her current understanding of what is wrong with her, and defers to her son. His son reports that she does have some cognitive deficits since her episode of sepsis in 2017, though she does present somewhat worse today. In asking the son with his understanding of current illness is, he does perceive that there are further treatment options for his mother, but can acknowledge that she is doing poorly. I did discuss after my exam, patient does not present with decision-making capacity, and proceeded to have a conversation regarding goals of care with son included patient's reflections. Medical/Surgical History - Past Medical History Cardiovascular: reports: Hypertension, High cholesterol, Valve disorder (mitral valve) Respiratory: reports: Asthma, COPD Neuro: Migraines, Other (mild cogn deficits) Endocrine/Autoimmune: reports: Type 2 diabetes GI: reports: GERD HYDRO MECHANIC: reports: Breast cancer HEENT: reports: Chronic vision loss Psych: reports: Depression Musculoskeletal: reports: Other (right humerus fracture; right clavicle fracture) MRSA Hx?: No - Past Surgical History General: reports: Cholecystectomy, Appendectomy /HYDRO MECHANIC: reports: Other (lumpectomy) HEENT: reports: Tonsil/Adenoidectomy - Substance History Use: Uses substance without health or social issues: NONE Social History - Living Situation Living arrangement: halfway Support System: Patient is very dependent on son Ba, she is lived with him and his son juan ramon and girlfriend since March 2017. She has been 2, with her first who remarried, a second , she also has a long-term boyfriend after this. She did lose her other son in 1999 as a result of a disability. The plan is for her to be at [facility] as they cannot meet her personal care needs, but will continue to provide ongoing oversight and support, her son currently is off work due to an L&I injury in his hand. So he has been able to be available to meet with providers and assist with this transition. Family History - Family History Family History: Mother: , Father: , Other family: Alive and Well (son 1999) Medications/Allergies - Medications Home Medications: Ambulatory Orders Medication Instructions Recorded Confirmed Sertraline HCl 100 mg PO DAILY 07/30/17 11/04/17 Hydrocodone/Acetaminophen 1 tab PO Q6H PRN MDD 4 10/27/17 11/04/17 [Hydrocodone-Acetamin 10-325 mg] Omeprazole [PriLOSEC] 20 mg PO DAILY 10/27/17 11/04/17 amLODIPine [Norvasc] 5 mg PO DAILY 10/27/17 11/04/17 HYDROcod/ACETAM 5/325 [[place] 5/325] 1 tab PO TID 11/04/17 11/04/17 Ibuprofen 400 mg PO BID 11/04/17 11/04/17 Insulin Lispro [Humalog] 0 - 6 units SQ BIDAC PRN MDD 11/04/17 11/04/17 sliding scale Senna [Senokot] 17.2 mg PO ACHS 11/04/17 11/04/17 - Allergies Allergies/Adverse Reactions: Allergies Allergy/AdvReac Type Severity Reaction Status Date / Time No Known Drug Allergies Allergy Verified 09/06/17 15:17 Review of Systems - Constitutional Constitutional: reports: Fatigue, Weakness, Poor appetite, Weight loss - Eyes Eyes: reports: Vision loss, Corrective lenses - Ears, Nose & Throat Ears, Nose & Throat: reports: Hearing loss, Hoarseness, Dry mouth - Cardiovascular Cardiovascular: reports: Exertional dyspnea, Decr. exercise tolerance. denies: Chest pain - Respiratory Respiratory: reports: Wheezing, SOB with exertion, Other (newly on oxygen) - Gastrointestinal Gastrointestinal: reports: Constipation, Poor appetite, Early satiety - Genitourinary Genitourinary: reports: Incontinence. denies: Dysuria - Musculoskeletal Musculoskeletal: reports: Muscle pain, Back pain, Muscle aches, Stiffness, Limited range of motion, Muscle weakness - Integumentary Integumentary: reports: Dryness, Other (c/o tail bone pain) - Neurological Neurological: reports: General weakness, Memory problems, Incoordination, Slurred speech - Psychiatric Psychiatric: reports: Depression, Anxiety - Endocrine Endocrine: reports: Diabetes type 2 (blood sugars running lower with decreased intake; 70/30 NPH on hold using humalog) - Hematologic/Lymphatic Hematologic/Lymphatic: reports: Anemia, Recurrent infections (presents with positive UTI for E coli) - All Other Systems All Other Systems: reports: Reviewed and negative Physical Exam - Vital Signs Temperature: 97.1 C Pulse Rate: 78 Respiratory Rate: 20 - Physical Exam General Appearance: positive: Mild distress (related to pain and discomfort in right arm/tail bone) Eyes Bilateral: positive: Other (difficulty focusing; periorbital edema) ENT: negative: Oral lesions Neck: positive: No JVD, Trachea midline Cardiovascular: positive: Regular rate & rhythm Respiratory: positive: Diminished in bases, Wheezes (upper airway wheezed anteriorly). negative: Rales, Rhonchi Abdomen: positive: Non-tender, Soft, Nml bowel sounds Skin: positive: Pallor, Dryness, Pressure wound (stage I on coccyx 2 x 2 cm; difficult to stay off of) Extremities: positive: Pedal edema (trace). negative: Full ROM (right arm in sling; is right handed; attempting to eat with left hand; weak and difficulty with pivot transfer observed with PT) Neurologic/Psychiatric: positive: Disoriented to place, Disoriented to time, Weakness, Slurred/abnml speech, Flat affect Palliative Care - POLST Patient has POLST: Yes POLST Status: DNR, Selective Treatment (completed with son;) Pain: Pain worsening, Location (right arm with movement; positioning; toileting) Tiredness/Fatigue: Severe (7-10) Drowsiness/Sedation: Moderate (4-6) Nausea: None Depression: Moderate (4-6) Anxiety: Moderate (4-6) Dyspnea: Moderate (4-6) Anorexia: Severe (7-10), Weight loss (165 at August MD appointment; radiation 150 lbs had lost five in one week) Sleep: Other (patient can't recall) Constipation: Yes, Opoid induced, Unmanaged (had use intermittent ducolax at home; unable to recall last bm) Performance Status: Patient had already been compromised with right clavicle fracture, as far as being able to toilet, do ADLs, and activity tolerance. With fracture of right humerus, patient is unable to toilet, poor bed mobility, very weak and difficulty with pivot transfers. - Palliative Care Discussion: Son obviously very fond of his mother, and wanting the best for her. Patient really with poor insight and does not present in her current current confused state able to participate in decision-making at this time. Unfortunately patient does not have advanced directives, they do have a DPOA, he reports it does include for medical decisions. They have seen the [facility] before, but have not moved forward on this. Unfortunately because of the setting he is in, a PA[facility] does need to be completed. I did spend quite a lot of time counseling to him as far as given his mother's current serious situation, CPR particularly with her bony metastases, current health status, and fragile state would most likely not be successful and also add to her suffering and distress. Counseled that this does not mean no treatment, we did do selected treatment options, where he can weigh benefits and burdens of moving forward. He still wants to treat reversible conditions, which would mean hospitalization at this point. Though the information had gotten from the emergency room was oncologist felt it was time to transition to hospice care, it does not appear that this is the son's understanding at this point and feels there may be future treatment options for her. We did discuss she would need to improved fairly dramatically from her current fragile state, as she is quite deconditioned, poor performance status, cognitive decline, and is continued to do poorly. I did discuss with him I will be talking to Dr. Troncoso to get a better sense of how best to support them moving forward, I suspect with her long-term relationship it would be best that she also deliver this message. She does appear at this point in time as far as the patient to have fairly poor prognosis and would probably benefit in her current setting to transition to hospice. This is not in alignment yet with her son's goal, so we will continue to support them where they are at at this point Results - Lab Results Lab results reviewed: Yes Impression and Recommendations - Palliative Care Impression: This is a 72-year-old woman who has metastatic breast cancer to the bones, lungs, and nodes. She does have a known T12 mass to the spine, and deterioration of the L4 lesion, she also is receiving radiation bilaterally to her hips. She received 6 out of 10 treatments, she will still benefit from this, but still remains at risk for cord compression. Patient does have a right humeral fracture, is unclear if this was related to trauma though there is no precipitating event, or pathological. Trips to radiation including radiation itself, were significantly difficult on patient, could have happened at that point in time. Patient presents with acute on chronic confusion, will treat current UTI to see if she improves, she also presents with uncontrolled pain, weight loss, anorexia and newly on oxygen. Palliative care to provide support for pain and symptom management and advanced care planning and transition to hospice when appropriate Recommendations/Counseling Done: 1. Acute on chronic confusion. Will treat UTI to see if this improves, patient also with new hypoxia, she has had some fairly stressful events his last few weeks, and certainly could be developing some delirium as well. Consult with Dr. Friedman regarding plan of care, he will write orders for antibiotic as well as symptom meds we had discussed 2. Acute on chronic pain. Patient on a baseline ibuprofen 400 mg twice daily, will need to watch her kidney function related to this. She has responded in the past on hydrocodone 5 mg / 325 mg for pain without sedation and her confusion. Given the setting and patient's inability to really ask for medication for pain or distress, will go ahead and schedule at least for the next week 3 times daily, can hold or discontinue if as to sedation or confusion. 3. Constipation. Patient with decreased intake, opioid-induced constipation, history of constipation. Will go ahead and schedule to senna at bedtime daily. 4. Stage I decub on coccyx. Patient is on a decent mattress, but will follow up with facility if there is a alternating pressure mattress particularly since patient has poor bed mobility and is unable to position herself. Requested apply barrier cream BID. 5. Weight loss. Dietitian is working with patient, as well as getting supplements. Patient has not eaten for greater than a week, son reports she is quite picky at times as far as her food preferences. They are trying to accommo date her here. Will need to continue with weekly weights, may need med pass at some point though it is complicated with her diabetes. Patient unable to cut food, order left for dietary to remind them. 6. Depression. Patient is somewhat seem resigned to her new setting, though concerned about her ongoing isolation particularly in the context of her cognitive decline. Will go ahead and make referral to the palliative care director of student financial services, her son reports she is a woman of great giselle, and I suspect with this ongoing decline she could use this as support for her coping. She has already met medical palliative care psychosocial rehabilitation counselor, will make a referral as well for counseling for adjustment to illness in her new setting. 7 Advanced care planning. Patient presents with high symptom burden, decline in functional status weight loss, decline in cognitive status, UTI, hypoxia, and 2 recent ED visits. Patient is in somewhat of an acute state, though I suspect patient's prognosis continues to be quite poor of weeks to months. Counseling provided to son regarding PAW[facility] form, and goals of care for his mom. He still would like treatment for reversible conditions, would consider hospitalizations if appropriate, and is hopeful there are further treatment options available to her through her oncologist. We did fill out DNAR/allow natural and selective treatment options, antibiotics and trial of medical nutrition for comfort if appropriate. Will follow up with oncologist when she [place] [facility] [place], will mostly likely be helpful if she reaches out to patient's son. Given the severity of patient's symptom burden and current functional status, will see if can get the information needed for decision-making to assist with goals of care for the future. Time Spent: 75 minutes was given 50% of this done in counseling regarding advanced directives, symptoms, and coordination of care with clinical staff, Dr. Friedman, and referrals to psychosocial rehabilitation counselor/director of student financial services.
== END 2017-11-03 12:31 | disposition home or self-care (01) ==
LOC: PC 12:30
PROVIDERS: ATTEND Nurse Practitioner Adult Health
DX: Z51.5 Encounter for palliative care (principal); G89.3 Neoplasm related pain (acute) (chronic); R41.0 Disorientation, unspecified; N39.0 Urinary tract infection, site not specified; R09.02 Hypoxemia; C50.912 Malignant neoplasm of unspecified site of left female breast; C78.00 Secondary malignant neoplasm of unspecified lung; C77.1 Secondary and unspecified malignant neoplasm of intrathoracic lymph nodes; C79.51 Secondary malignant neoplasm of bone; K59.00 Constipation, unspecified; L89.151 Pressure ulcer of sacral region, stage 1; R63.4 Abnormal weight loss; F32.9 Major depressive disorder, single episode, unspecified; R41.81 Age-related cognitive decline; E11.9 Type 2 diabetes mellitus without complications; R32 Unspecified urinary incontinence; S49.81XD Other specified injuries of right shoulder and upper arm, subsequent encounter; H54.7 Unspecified visual loss; H91.90 Unspecified hearing loss, unspecified ear; Z66 Do not resuscitate; Z79.891 Long term (current) use of opiate analgesic; Z79.4 Long term (current) use of insulin; Z91.81 History of falling
CPT/HCPCS: 99306

== ENCOUNTER 2017-11-09 18:54 | Outpatient (CLI) | payer MEDICARE ==
--- NOTE | 2017-11-09 19:06 | CONSULTATION NOTE ---
Palliative Care Follow Up - Referral Referring Provider: Dr. Phani Friedman Time of Visit: [id number] Referral setting: Custodial Facility Referral Reason: Metastatic breast Ca/Pain/Goals of Care - Information Sources Records reviewed: Previous records reviewed History/Review of Systems obtained from: Patient, Caregiver (clinical staff) Exam limitations: Clinical condition (patient with poor memory unreliable but conversant) - History of Present Illness Update Brief HPI Update: This is a 72-year-old woman with metastatic breast cancer, initially diagnosed with stage II a with left breast mass and lumpectomy in 04/2014, she had post chemoradiation and follow-up. In 2016 she developed metastatic disease in volving the bone, lung, with multiple pulmonary nodules and hilar and Mediastinal adenopathy. She has had ongoing treatment, she did have hospitalization with sepsis at that time, had some kind of cognitive event and continues to have short-term memory issues. She started palliative paclitaxel 04/02, her last dose was given on 720 07/2017 his continue to have disease progression. She did show on a CT scan and epidural paraspinous tumor at T12, and increased distraction of the anterior aspect of the L4 vertebral body. She also has metastases in the right frontotemporal region of the calvarium, with a mass involving the scalp and epidural space. She had started radiation to the T12 and a few other targeted bone metastases area, but was unable to tolerate this. She in the meantime was living with her son, has had multiple falls, refracture of her right clavicle, and a fractured right humerus. With increased complications they were unable to meet her needs at home, and she is currently at the nursing facility. She did develop nausea and vomiting, was seen in the ED, did show positive urine and has been on antibiotics, concern she this is adding to her nausea. She is continued to do fairly poorly, with difficulty with pain control, now recurrent nausea and vomiting, poor appetite, and continued functional decline. Social History - Living Situation Living arrangement: skilled nursing Support System: Her son Walt oversees her care, her grandson Amado visits her frequently. She had been living with them for about a year, but both were working until it became more complicated. Medications/Allergies - Medications Home Medications: Ambulatory Orders Medication Instructions Recorded Confirmed Sertraline HCl 100 mg PO DAILY 07/30/17 11/10/17 Omeprazole [PriLOSEC] 20 mg PO DAILY 10/27/17 11/10/17 amLODIPine [Norvasc] 5 mg PO DAILY 10/27/17 11/10/17 Senna [Senokot] 17.2 mg PO BID 11/04/17 11/10/17 Insulin 70/30 Human [NovoLIN] 10 units SQ BID 11/10/17 11/10/17 Insulin Lispro [Humalog Kwikpen 0 - 6 units SQ BID 11/10/17 11/10/17 U-100] Nystatin 5 ml PO QID MDD 10 days 11/10/17 11/10/17 Ondansetron HCl [Zofran] 4 mg PO AC 11/10/17 11/10/17 Ondansetron HCl [Zofran] 4 mg PO Q4HR PRN 11/10/17 11/10/17 oxyCODONE [Roxicodone] 5 mg PO Q4HR PRN 11/10/17 11/10/17 oxyCODONE [Roxicodone] 5 mg PO TID 11/10/17 11/10/17 - Allergies Allergies/Adverse Reactions: Allergies Allergy/AdvReac Type Severity Reaction Status Date / Time No Known Drug Allergies Allergy Verified 09/06/17 15:17 Review of Systems - Constitutional Constitutional: reports: Fatigue, Weakness, Poor appetite, Weight loss (139) - Eyes Eyes: reports: Vision loss, Corrective lenses - Ears, Nose & Throat Ears, Nose & Throat: reports: Hearing loss (mild), Dry mouth, Other (c/o poor taste and soreness) - Cardiovascular Cardiovascular: reports: Decr. exercise tolerance - Respiratory Respiratory: reports: SOB with exertion. denies: SOB at rest - Gastrointestinal Gastrointestinal: reports: Constipation (needed one dose of MOM), Nausea (for several days with vomiting;newly scheduled Zofran prior to meals), Poor appetite, Early satiety, Other (poor fluid intake) - Genitourinary Genitourinary: reports: Incontinence. denies: Dysuria - Musculoskeletal Musculoskeletal: reports: Limited range of motion (right humerus fx without sling), Muscle weakness, Transfer issues (max two person assist to transfer) - Integumentary Integumentary: reports: Dryness, Other (c/o tail bone hurting) - Neurological Neurological: reports: General weakness - Psychiatric Psychiatric: reports: Depression - Endocrine Endocrine: reports: Diabetes type 2 (blood sugars elevated; increasing NPH by PCP in response despite poor intake) - Hematologic/Lymphatic Hematologic/Lymphatic: reports: Recurrent infections (recent UTI) - All Other Systems All Other Systems: reports: Reviewed and negative Physical Exam - Vital Signs Temperature: 97.6 C Pulse Rate: 104 Respiratory Rate: 18 O2 Saturation: 92 (on 2 liters) Blood Pressure: 112/92 - Physical Exam General Appearance: positive: Moderate distress (up in wheelchair c/o arm pain and tailbone pain) Eyes Bilateral: positive: Normal inspection ENT: positive: Oral lesions (buccal scattered white patches; back of tongue with thickened white patch unable to rinse or brush off), Other (observed patient with some choking with drinking;) Neck: positive: No JVD, Trachea midline Cardiovascular: positive: Regular rate & rhythm, Tachycardia Respiratory: positive: Diminished in bases. negative: Wheezes, Rales, Rhonchi Abdomen: positive: Non-tender, Soft, Nml bowel sounds Skin: positive: Pallor, Pressure wound (thinned skin pink over tailbone-abnormal structure; reports she has broken tailbone before) Extremities: positive: No pedal edema, Other (right arm with severe pain with any movement; splint in nima but without sling) Neurologic/Psychiatric: positive: Disoriented to place (aware in "[place]"), Disoriented to time, Weakness, Depressed mood/affect, Flat affect Palliative Care - POLST Patient has POLST: Yes POLST Status: DNR, Selective Treatment Pain: Pain worsening, Location (right arm and tailbone; reports pain at rest but very painful with any movement or repositioning) Tiredness/Fatigue: Severe (7-10) Drowsiness/Sedation: Moderate (4-6) (son reports patient very sleepy when visiting; awake and alert through my visit but up in chair for lunch which she did not eat) Nausea: Moderate (4-6), With vomiting Depression: Moderate (4-6) Anxiety: Mild (1-3) Dyspnea: None Anorexia: Severe (7-10) Sleep: Other (unable to recall) Constipation: Yes, Opoid induced, Unmanaged Performance Status: Patient working with rehab, difficulty with increased symptom burden of nausea and vomiting and pain. Patient's goal is to be more functional, but is max assist for all ADLs. Is able to self-feed, though suspect needs further encouragement. - Palliative Care Discussion: Patient is somewhat resigned in our conversation, she is able to engage but has very poor short-term memory recall. Is feeling overall fairly miserable, her goal is to feel good. I did speak with son Walt, he is of course concerned, he does recognize patient is in no condition to consider further treatment at this point. Will touch base with Dr. Troncoso to help further define goals of care to assist son in accepting patient's most likely ongoing decline. Impression and Recommendations - Palliative Care Impression: This is a 72-year-old woman with metastatic breast cancer to the bones along in notes. She does have a known T2 out masses spine, deterioration of her L4 lesion, right humeral fracture, and fracture of her right clavicle. She presents with high symptom management, of uncontrolled pain, weight loss, anorexia, newly on oxygen, and now with nausea and vomiting. Palliative care providing support in her current setting for pain and symptom management and advanced care planning, transition to hospice when appropriate Recommendations/Counseling Done: 1. Acute on chronic pain. Patient without sling, follow-up with physical therapy regarding replacing sling and instructions with caregivers need to have in place as seems to be missing for several days. Did make one out of sheet for transfers as this is most painful transfer. Patient is Reporting uncontrolled pain, even at rest. Despite concerns regarding finding balance between sedation and pain relief, patient expressed that she would rather be comfortable. Will switch out to oxycodone 5 mg 3 times daily scheduled and 5 mg every 4 hours as needed in between doses as needed for breakthrough pain. Patient may be a candidate for fentanyl patch, if pain continues to escalate. 2. Nausea and vomiting. Difficult to tell the underlying etiology regarding this, had originally thought to be the UTI. Patient is slightly dehydrated, orders written for supervised oral hydration. Patient does have ondansetron scheduled prior to meals, and as needed. Will discontinue amoxicillin at this point, to see if her nausea improves. Also discontinuing the [place], with no acetaminophen, we will be able to tell if she spikes a temp. 3. Constipation. Patient at high risk for recurrent constipation particularly in adding the ondansetron, will go ahead and increase her bowel program to senna 2 tabs twice daily. 4. Oral candidiasis. Nystatin 5 mils 4 times daily ordered, hopefully this will assist with her perceived taste changes and poor intake. 5. Anorexia. This is multifactorial in origin, will consider appetite stimulant, will hold off for now and see if current changes, including resolution of nausea and vomiting assist. Did encourage son when visiting, to bring Tucks shakes and orders smoothies that are attractive to her, or outside food. 6. Metastatic breast cancer. Will recheck to oncologist, to further assist with advanced care planning, given patient's ongoing functional decline, and high symptom burden, most likely will not be a candidate for future treatment but will confirm this. This will assist in working further with son regarding advanced care planning. 7. Dysphagia. This is most likely multifactorial in origin as well, patient was having difficulty with fluids during visit, with choking, needed cueing and encouragement and feeding. Only took a few bites. Will order speech therapy to evaluate and treat and see if there is anything else that might be of assistance in managing her eating more safely and efficiently. 8. Stage I decub on coccyx. Patient at high risk for further skin breakdown related to immobility. Did follow-up with labor relations manager regarding obtaining MATT mattress ordered last week. Patient also on gel cushion, that is quite uncomfortable for her, we will have OT follow-up for proper seating cushion. Time Spent: 75 minutes spent with greater than 50% of that done in counseling, coordination with staff regarding care needs, sling, MATT mattress, medication changes, and anticipatory guidance with son
== END 2017-11-09 18:55 | disposition home or self-care (01) ==
LOC: PC 18:54
PROVIDERS: ATTEND Nurse Practitioner Adult Health
DX: Z51.5 Encounter for palliative care (principal); G89.3 Neoplasm related pain (acute) (chronic); R41.0 Disorientation, unspecified; R09.02 Hypoxemia; C50.912 Malignant neoplasm of unspecified site of left female breast; C78.00 Secondary malignant neoplasm of unspecified lung; C77.1 Secondary and unspecified malignant neoplasm of intrathoracic lymph nodes; C79.51 Secondary malignant neoplasm of bone; R11.2 Nausea with vomiting, unspecified; K59.03 Drug induced constipation; T40.2X5D Adverse effect of other opioids, subsequent encounter; L89.151 Pressure ulcer of sacral region, stage 1; R63.0 Anorexia; R13.10 Dysphagia, unspecified; F32.9 Major depressive disorder, single episode, unspecified; R41.81 Age-related cognitive decline; E11.9 Type 2 diabetes mellitus without complications; R32 Unspecified urinary incontinence; S49.81XD Other specified injuries of right shoulder and upper arm, subsequent encounter; H54.7 Unspecified visual loss; H91.90 Unspecified hearing loss, unspecified ear; Z66 Do not resuscitate; Z79.891 Long term (current) use of opiate analgesic; Z79.4 Long term (current) use of insulin; Z91.81 History of falling; Z79.899 Other long term (current) drug therapy; Z87.440 Personal history of urinary (tract) infections; B37.0 Candidal stomatitis
CPT/HCPCS: 99310

== ENCOUNTER 2017-11-14 10:18 | Outpatient (CLI) | payer MEDICARE | END 2017-11-14 10:19 | disposition critical access hospital (66) | LOC: EMS 10:18 | PROVIDERS: ATTEND Surgery | DX: R06.02 Shortness of breath (principal); R50.9 Fever, unspecified | CPT/HCPCS: A0425; A0429 ==

== ENCOUNTER 2017-11-14 10:23 | Observation (INO) | payer MEDICARE ==
--- NOTE | 2017-11-14 10:37 | ED Physician Documentation ---
History of Present Illness - Stated complaint Stated Complaint: SOA - Chief complaint Chief Complaint: Resp - Additonal information Additional information: hx from pt EMR and COW doc Dr Friedman who called ahead 72 female with metastatic breast CA seen in ER 11/01 for fx humerus and clavicle now at [facility] to ED today for fever soa cough possible aspiration, tmax 100.6, HR 104 at [facility] pt on 2 L home O2 per Dr Friedman DNR limited admit and antibiotics OK pt denies SEBASTIAN CP AP her arm does hurt when moved no NVD reported no asymm leg swelling sent for CXR to eval for pna Review of Systems Constitutional: denies: Fever, Chills Throat: denies: Sore throat Cardiac: denies: Chest pain / pressure Respiratory: reports: Dyspnea, Cough GI: denies: Abdominal Pain, Nausea, Vomiting, Diarrhea Endocrine: denies: Easy bruising / bleeding Immunocompromised: denies: Immunocompromised PD PAST MEDICAL HISTORY - Past Medical History Cardiovascular: Hypertension, High cholesterol, Valve disorder (mitral valve) Respiratory: Asthma, COPD Neuro: Migraines, Other (mild cogn deficits) Endocrine/Autoimmune: Type 2 diabetes GI: GERD BILLER: Breast cancer HEENT: Chronic vision loss Psych: Depression Musculoskeletal: Other (right humerus fracture; right clavicle fracture) - Past Surgical History Past Surgical History: Yes General: Cholecystectomy, Appendectomy /BILLER: Other (lumpectomy) HEENT: Tonsil/Adenoidectomy - Present Medications Home Medications: Ambulatory Orders Medication Instructions Recorded Confirmed Sertraline HCl 100 mg PO DAILY 07/30/17 11/10/17 Omeprazole [PriLOSEC] 20 mg PO DAILY 10/27/17 11/10/17 amLODIPine [Norvasc] 5 mg PO DAILY 10/27/17 11/10/17 Senna [Senokot] 17.2 mg PO BID 11/04/17 11/10/17 Insulin 70/30 Human [NovoLIN] 10 units SQ BID 11/10/17 11/10/17 Insulin Lispro [Humalog Kwikpen 0 - 6 units SQ BID 11/10/17 11/10/17 U-100] Nystatin 5 ml PO QID MDD 10 days 11/10/17 11/10/17 Ondansetron HCl [Zofran] 4 mg PO AC 11/10/17 11/10/17 Ondansetron HCl [Zofran] 4 mg PO Q4HR PRN 11/10/17 11/10/17 oxyCODONE [Roxicodone] 5 mg PO Q4HR PRN 11/10/17 11/10/17 oxyCODONE [Roxicodone] 5 mg PO TID 11/10/17 11/10/17 Amoxicillin/Potassium Clav 500 mg PO BID 7 Days ml 11/14/17 [Augmentin 250-62.5 mg/5 ml] - Allergies Allergies/Adverse Reactions: Allergies Allergy/AdvReac Type Severity Reaction Status Date / Time No Known Drug Allergies Allergy Verified 09/06/17 15:17 - Social History Does the pt smoke?: No Smoking Status: Never smoker Does the pt drink ETOH?: No Does the pt have substance abuse?: No - Immunizations Immunizations are current?: Yes - POLST Patient has POLST: Yes PD ED PE NORMAL - Vitals Vital signs reviewed: Yes - General General: Other (alert cooperative) - Neck Neck: Supple, no meningeal sign - Cardiac Cardiac: RRR - Respiratory Respiratory: No respiratory distress. No: Clear bilaterally (ronchi on right) - Abdomen Abdomen: Soft, Non tender - Derm Derm: Normal color - Extremities Extremities: No edema, No calf tenderness / cord - Neuro Neuro: Other (alert) Results - Vitals Vitals: Vital Signs - 24 hr 11/14/17 10:25 Temperature 37.4 C Heart Rate 101 H Respiratory 12 Rate Blood Pressure 138/88 H O2 Saturation 93 Oxygen O2 Source Nasal cannula - Rads (name of study) CXR Radiology: See rad report (interval decrease lung volumes, inc interstitial markings) PD MEDICAL DECISION MAKING - ED course ED course: delay for imaging CXR shows non specific inc interstitial markings but exam not suggestive of CHF and BNP added on and neg may have aspiration as that often has delayed findings on imaging certainly has ronchi on exam will tx for aspiration but not hypoxic beyond her usual need for 2 L NC will dc back COW on ab and rec rpt CXR tomorrow which I understand can be done there ready for dc but family concerned about pt aspirating - got swallow eval - sx are not new, per son going on several months - per swallow study pt likely has reflux, also poor attention during feeding and lets food slide off her tongue down airway, rec is consider H2B, aspiration precautions, sit up to eat, nectar thick liquids and pureed food, and speech pathology eval at [facility] even with these rec diff to get pt to take her pills and had to change to suspension ready for dc again then, she vomited family concerned about her poor appetite, her diff swallowing, vomiting, etc researching in EMR I see pt had a very extensive palliative care consult addressing all these issues within the last week, seems chemo is palliative none of this is new there is a plan is in place to address these concerns will dc as planned will rx zofran for vomiting if no interaction and rec 1 L NS IV per day to help prevent dehydration but when nurse called report back to [facility], they decline to take pt back - state family is not ready to make pt comfort care, that if she cannot tolerate PO fluids and meds they cannot care for her, would like her admitted, will not take her back called hospitalist at 1815 hospitalist spoke to JAMILA and Dr Friedman - placed in obs - Sepsis Event Vital Signs: Vital Signs - 24 hr 11/14/17 10:25 Temperature 37.4 C Heart Rate 101 H Respiratory 12 Rate Blood Pressure 138/88 H O2 Saturation 93 Oxygen O2 Source Nasal cannula Departure - Departure Disposition: ED Place in Observation Clinical Impression: Pneumonia Qualifiers: Pneumonia type: due to unspecified organism Laterality: bilateral Lung location: unspecified part of lung Qualified Code(s): J18.9 - Pneumonia, unspecified organism Condition: Good Discharge Date/Time: 11/14/17 19:35
[2017-11-14 11:51] LABS: BASOPHILS % (AUTO) 0.5 %; EOSINOPHILS % (AUTO) 0.3 %; HGB - HEMOGLOBIN 11.1 g/dL (12.0-16.0); LYMPHOCYTES # (AUTO) 0.3 10^3/uL (1.5-3.5); MEAN CORPUSCULAR HEMOGLOBIN 30.2 pg (27.0-31.0); MEAN CORPUSCULAR HGB CONC 34.5 g/dL (32.0-36.0); MEAN CORPUSCULAR VOLUME 87.4 fL (81.0-99.0); MEAN PLATELET VOLUME 9.6 fL (7.9-10.8); MONOCYTES # (AUTO) 0.4 10^3/uL (0.0-1.0); MONOCYTES % (AUTO) 9.9 %; NEUTROPHILS # (AUTO) 3.5 10^3/uL (1.5-6.6); NEUTROPHILS % (AUTO) 81.3 %; PLT - PLATELET COUNT 82 10^3/uL (130-450); RED BLOOD COUNT 3.67 10^6/uL (4.20-5.40); RED CELL DISTRIBUTION WIDTH 16.8 % (12.0-15.0); WHITE BLOOD COUNT 4.3 x10^3/uL (4.8-10.8)
[2017-11-14 12:05] LABS: CALCIUM 10.1 mg/dL (8.5-10.3); CREATININE 0.9 mg/dL (0.4-1.0)
--- NOTE | 2017-11-14 12:43 | XRAY Report ---
Reason: rhonchi, possible aspiration Procedure Date: 11/14/2017 Accession Number: [id number] / [id number] Procedure: XR - Chest 1 View X-Ray CPT Code: 86704 FULL RESULT: EXAM: CHEST RADIOGRAPHY EXAM DATE: 11/14/2017 12:24 PM. CLINICAL HISTORY: Rhonchi, possible aspiration. COMPARISON: Chest 2-view 11/01/2017 11:26 AM. TECHNIQUE: 1 view. FINDINGS: Interval decrease in lung volumes with hazy interstitial markings throughout both lungs. Evaluation of the cardiomediastinal silhouette is limited by rotation, likely stable accounting for rotation. There is no large pleural effusion or pneumothorax. While there is no lobar consolidation, aspiration of the lung bases is not excluded on this view. IMPRESSION: Interval decrease in lung volumes with interval increase in interstitial markings bilaterally. RADIA
[2017-11-14] MEDS ORDERED: AMOX/CLAV 875 MG/125 MG TABLET PO STA (14:56)
[2017-11-14] MEDS ORDERED: AMOX/CLAV 200 MG/28.5 MG CHEW TABLET PO STA (16:51)
[2017-11-14] MEDS ORDERED: MORPHINE 2 MG/ML CARPUJECT IVP PRN (18:27)
[2017-11-14] MEDS ORDERED: SODIUM CHLORIDE FLUSH 0.9% 10 ML SYRINGE IVP PRN (18:27)
[2017-11-14] MEDS ORDERED: ONDANSETRON 4 MG/2 ML VIAL IVP PRN (18:27)
[2017-11-14] MEDS ORDERED: CLINDAMYCIN INJ 300 MG in SODIUM CHLORIDE 0.9% 50 ML IV SCH (19:00)
[2017-11-14] MEDS: SODIUM CHLORIDE 0.9% 1,000 ML IV SCH (20:10)
[2017-11-14] MEDS: CLINDAMYCIN 600 MG/50 ML 50 ML IV SCH (20:40)
--- NOTE | 2017-11-14 21:13 | HISTORY & PHYSICAL EXAMINATION ---
Chief Complaint - Chief Complaint Chief Complaint: Coughing History of Present Illness - Admitted From Admitted From:: Emergency Department - History Obtained From Records Reviewed: Yes History obtained from: Patients son and grandson Exam Limitations: Patient has congnitive decline and cannot provide detailed history - History of Present Illness HPI Comment/Other: Patient is a very unfortunate 72-year-old female with a past medical history significant for metastatic breast cancer, insulin-dependent diabetes, cognitive impairment, depression and urinary incontinence with recent fracture of her right clavicle and right humerus currently living at [facility] for the last week who presented to the emergency department with chief complaint of cough. The patient is unable to provide me any kind of detailed history therefore the history is provided by the patient's son and grandson as well as from medical records. The patient was initially diagnosed with stage II a breast cancer with finding of left breast mass and lumpectomy was performed in April 2014. The patient appeared to have negative margins but still underwent chemoradiation. She appeared to be in remission and then in 2016 she developed metastatic disease involving the bone, lungs, with multiple pulmonary nodules and hilar and mediastinal adenopathy. She was treated with chemotherapy and during that treatment developed sepsis requiring hospitalization which led to cognitive impairment including short-term memory loss. The patient was started on palliative paclitaxel in March 2017 and her last dose was given in August 2017. 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 She also has metastasis in the right frontotemporal region of the calvarium, with a mass involving the scalp and epidural space. She had started radiation for the T12 paraspinous tumor and a few other targeted bone metastasis and treatment was planned for 10 doses but the patient was only able to tolerate 6 doses her last treatment being 10/26/2017. The patient was living with her son up until a week ago as she started to complain of pain in her right arm and was found to have a right clavicular and right humerus fracture. According to the patient's son and grandson they are unsure if the patient fell or not as these appear to be pathological fractures. The patient's son and grandson were unable to meet the patient's needs at home and she was then transferred to [facility] just a week ago. According to the patient's son the patient has been suffering with increasing nausea and vomiting over the last week. She has not been having very good oral intake. He states that she was diagnosed with a urinary tract infection and started on antibiotics but her nausea and vomiting continued. The patient has also had chronic pain due to the numerous bony metastasis for which she is being managed by palliative care and is on scheduled oxycodone as she has difficulty expressing her pain level. The patient's son states that the patient has had a chronic cough but it has been significantly worse over the last few days. He states that she has had difficulty with her swallowing for some time where she does have coughing when she swallows and also pockets food and has to be told to swallow. He states that yesterday the staff at [facility] became very concerned as the patient had significant bouts of coughing after she ate. They were concerned for possible aspiration. Today when the patient spiked a fever and continued to have coughi ng with a center to the emergency department. Regarding the patient's cancer the patient's son is under the impression that there is a plan for further radiation then chemotherapy once the patient regains her strength after this most recent fracture. Patient is unable to provide a conference of review of systems but at this time she denies any symptoms of pain, fever, cough, shortness of breath, chest pain, abdominal pain, nausea, vomiting or diarrhea. On presentation to the emergency department the patient was afebrile, tachycardic with a good blood pressure and saturating well on room air. The patient did have to be placed on 2 L of oxygen as her O2 sats dropped to the low 90s. The patient underwent a chest x-ray in the emergency department which revealed interstitial markings bilaterally which could be concerning for new lung disease. Given the patient's aspiration she was started on IV clindamycin. The patient's WBC was slightly low at 4.3 which is near her baseline. The yasmine genao's platelets were also low at 82 which is near her baseline and her hemoglobin was also at her baseline. Patient had no elevated lactic acid and chemistry appeared to be normal aside from an elevated glucose. The patient continued to remain tachycardic in the emergency department. The patient did undergo a swallow evaluation in the emergency department from which the patient was determined to have dysphasia and was recommended to be placed on a pured dysphagia diet with nectar thick liquids. The patient was also given IV fluids in the emerge department however given her recent aspiration and poor oral intake it was felt that the patient would benefit from an observation stay with IV fluids and treatment for her aspiration pneumonia. History - Past Medical History Cardiovascular: reports: Hypertension, High cholesterol, Valve disorder (mitral valve) Respiratory: reports: Asthma, COPD Neuro: reports: Migraines, Other (Cognitive deficits ) Endocrine/Autoimmune: reports: Type 2 diabetes GI: reports: GERD [employer]: reports: Breast cancer (with metastasis to bone, lungs and scalp. With pathological fractures) HEENT: reports: Chronic vision loss Psych: reports: Depression Musculoskeletal: reports: Other (right humerus fracture; right clavicle fracture) MRSA Hx?: No - Past Surgical History General: reports: Cholecystectomy, Appendectomy /[employer] DEVELOPER: reports: Other (lumpectomy) HEENT: reports: Tonsil/Adenoidectomy - Family & Social History Family History: Mother: (son 1999), Cancer (Ovarian cancer), Father: , CAD, Other family: Living arrangement: [facility] Living Situation: Alone Social History Notes: Until 1 year ago the patient was living in [place] with a roommate. Over the last year she has been living with her son after she was found to have metastatic breast cancer she was unable to take care of herself and the son is been taking care of her until just a week ago when she had new fractures of her right clavicle and right humerus which made it impossible for the patient's son and grandson to take care of her. She has since been placed at [facility]. 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 She is . She had 2 sons 1 of whom . She rarely drinks alcohol on special occasions and does not smoke or do any illicit drugs. - Substance History Use: Uses substance without health or social issues: NONE - POLST Patient has POLST: Yes POLST Status: DNR Meds/Allgy - Home Medications Home Medications: Ambulatory Orders Medication Instructions Recorded Confirmed Sertraline HCl 100 mg PO DAILY 07/30/17 11/10/17 Omeprazole [PriLOSEC] 20 mg PO DAILY 10/27/17 11/10/17 amLODIPine [Norvasc] 5 mg PO DAILY 10/27/17 11/10/17 Senna [Senokot] 17.2 mg PO BID 11/04/17 11/10/17 Insulin 70/30 Human [NovoLIN] 10 units SQ BID 11/10/17 11/10/17 Insulin Lispro [Humalog Kwikpen 0 - 6 units SQ BID 11/10/17 11/10/17 U-100] Nystatin 5 ml PO QID MDD 10 days 11/10/17 11/10/17 Ondansetron HCl [Zofran] 4 mg PO AC 11/10/17 11/10/17 Ondansetron HCl [Zofran] 4 mg PO Q4HR PRN 11/10/17 11/10/17 oxyCODONE [Roxicodone] 5 mg PO Q4HR PRN 11/10/17 11/10/17 oxyCODONE [Roxicodone] 5 mg PO TID 11/10/17 11/10/17 Amoxicillin/Potassium Clav 500 mg PO BID 7 Days ml 11/14/17 [Augmentin 250-62.5 mg/5 ml] - Allergies Allergies/Adverse Reactions: Allergies Allergy/AdvReac Type Severity Reaction Status Date / Time No Known Drug Allergies Allergy Verified 09/06/17 15:17 Review of Systems - Other Findings Other Findings: Patient was unable to provide a comprehensive review of systems secondary to cognitive deficits. Refer to the HPI for relevant review of systems obtained from the patient and son. Prior Level of Functionality: Currently the patient is living at [facility] and is bed and wheelchair bound secondary to fractures of her humerus and clavicle on the right. Prior to this the patient was using a walker and prior to that she was using a cane. She appears to be having significant decline over the last few months. Exam - Vital Signs Reviewed Vital Signs: Yes Vital Signs: Vital Signs x48h Temp Pulse Pulse Resp BP BP Pulse Ox 11/14/17 20:00 36.6 C 104 H 20 141/81 H 95 11/14/17 19:30 37.0 C 99 15 121/87 H 99 11/14/17 17:00 111 H 19 141/88 H 96 11/14/17 16:00 109 H 16 127/81 H 11/14/17 15:00 100 18 123/86 H 11/14/17 14:00 100 15 127/80 97 11/14/17 13:30 100 16 127/84 H 95 - Physical Exam General Appearance: positive: No acute distress, Alert Eyes Bilateral: positive: Normal inspection, PERRL, EOMI, No lid inflammation, Conjunctivae nml, No scleral icterus ENT: positive: ENT inspection nml, Pharynx nml, Dry mucous membranes. negative: Purulent nasal drainage, Pharyngeal erythema, Oral lesions Neck: positive: Nml inspection, Thyroid nml, No JVD, Trachea midline. negative: Thyromegaly, Lymphadenopathy (R), Lymphadenopathy (L), Stiff neck, Carotid bruit, Tracheal deviation Respiratory: positive: Chest non-tender, No respiratory distress, Rhonchi (Worse on the right). negative: Wheezes, Rales Cardiovascular: positive: No murmur, No gallop, Tachycardia Peripheral Pulses: positive: 2+ Abdomen: positive: Non-tender, No organomegaly, Nml bowel sounds, No distention. negative: Guarding, Rebound, Hepatomegaly Back: positive: Nml inspection. negative: CVA tenderness (R), CVA tenderness (L) Skin: positive: Color nml, No rash, Warm, Dry. negative: Cyanosis, Diaphoresis, Pallor, Skin rash Extremities: positive: Non-tender, Full ROM, Nml appearance, No pedal edema Neurologic/Psychiatric: positive: CN's nml (2-12), Motor nml, Sensation nml, Mood/affect nml, Disoriented to place, Disoriented to time, Other (Patient is able to follow commands, she is slow to answer questions and is incoherant at times. She has poor memory.) Conclusion/Plan - Problem List (1) Aspiration into respiratory tract Conclusion/Plan: Patient presented to the emergency department with cough and fever. The patient has had aspiration at [facility] with coughing after eating. The last day she has developed increasing cough and fever. On presentation patient had a chest x-ray which revealed increase in interstitial markings bilaterally and exam revealed rhonchi right worse than left. Patient may just have chemical aspiration but could also have aspiration pneumonia. Patient is not currently febrile but is tachycardic and does have mild leukopenia. Plan: IV clindamycin Swallow evaluation Pured dysphagia diet with nectar thick liquids Supplemental oxygen Qualifiers: Encounter type: initial encounter Qualified Code(s): T17.908A - Unspecified foreign body in respiratory tract, part unspecified causing other injury, initial encounter (2) Dysphagia Conclusion/Plan: Patient appears to have dysphasia. Unclear if this is related to the patient's cancer but patient has had an overall decline in her cognitive function. She appears to have been having dysphasia with pocketing food and forgetting to swallow over the last few months. Now this is developed into aspiration. Patient was evaluated by speech therapy in the emergency department and found to have dysphasia. Plan: Pure dysphagia diet with nectar thick liquids Treat aspiration with IV clindamycin Speech to follow Qualifiers: Dysphagia type: oropharyngeal phase Qualified Code(s): R13.12 - Dysphagia, oropharyngeal phase (3) Dehydration Conclusion/Plan: Patient has had poor oral intake over the last week and appears dry on examination. Although patient has normal lactic acid and normal chemistries she does appear dehydrated and has tachycardia. Patient will be given IV fluids and we will continue to monitor her electrolytes and kidney function. (4) Cancer related pain Conclusion/Plan: Patient has a history of chronic pain due to her metastatic breast cancer. Patient has metastasis to the bones and has had pathologic fractures including recent fracture of her humerus and clavicle. The patient has cognitive deficits and therefore has difficulty expressing her pain. The patient is currently on scheduled oxycodone and as needed oxycodone. We will continue this regimen while she is hospitalized. The patient will also be placed on IV morphine as needed. (5) Metastatic breast cancer Conclusion/Plan: The patient does have a history of metastatic breast cancer which appears to be progressing with increasing metastasis to the bone and recent pathological fractures. The patient's oncologist is currently out of town and according to the patient's son the patient is still awaiting further treatment with radiation and chemotherapy once she has improved nutritional status. The patient is a DNR and is on chronic pain medication for her chronic pain. Patient has cognitive deficits which may be related to the cancer as well as dysphasia which may be related to the cancer. The patient's son does understand that her prognosis is poor but is waiting on the patient's oncologist for further recommendations and would like to continue treatment for as long as the patient is able to tolerate. He does understand that most recently the patient was not able to tolerate radiation therapy well. The patient's son is perhaps still in some denial as things have progressed very fast from the time when the patient appeared to be in remission. The patient is being followed by palliative care at [facility] and may soon need hospice if further treatment is not offered by her oncologist. Patient will need to follow-up with oncology as an outpatient for further recommendations. (6) Humerus fracture Conclusion/Plan: Patient has a recent fracture of her right humerus and right clavicle. The patient's son is not sure if she had a fall. This could have been a pathological fracture given her metastatic breast cancer with metastasis to the bones. The patient is currently in a sling and unable to use the right arm secondary to severe pain. This is left the patient bedbound and wheelchair bound. Prior to this the patient was able to use a walker to get around. Currently the patient is at [facility] getting physical therapy. Once the patient is stable she will be returned to [facility]. Qualifiers: Encounter type: subsequent encounter Humerus Location: shaft Fracture type: closed Fracture morphology: transverse Fracture alignment: displaced Laterality: right Fracture healing: with routine healing Qualified Code(s): S42.321D - Displaced transverse fracture of shaft of humerus, right arm, subsequent encounter for fracture with routine healing - Lab Results Lab results reviewed: Yes Fish Bones: 11/14/17 11:30 11/14/17 11:30 Other Lab Results: Laboratory Results WBC 4.3 x10^3/uL (4.8-10.8) L 11/14/17 11:30 RBC 3.67 10^6/uL (4.20-5.40) L 11/14/17 11:30 Hgb 11.1 g/dL (12.0-16.0) L 11/14/17 11:30 Hct 32.1 % (37.0-47.0) L 11/14/17 11:30 MCV 87.4 fL (81.0-99.0) 11/14/17 11:30 MCH 30.2 pg (27.0-31.0) 11/14/17 11:30 MCHC 34.5 g/dL (32.0-36.0) 11/14/17 11:30 RDW 16.8 % (12.0-15.0) H 11/14/17 11:30 Plt Count 82 10^3/uL (130-450) L 11/14/17 11:30 MPV 9.6 fL (7.9-10.8) 11/14/17 11:30 Neut # (Auto) 3.5 10^3/uL (1.5-6.6) 11/14/17 11:30 Lymph # (Auto) 0.3 10^3/uL (1.5-3.5) L 11/14/17 11:30 [place] # (Auto) 0.4 10^3/uL (0.0-1.0) 11/14/17 11:30 Eos # (Auto) 0.0 10^3/uL (0.0-0.7) 11/14/17 11:30 Baso # (Auto) 0.0 10^3/uL (0.0-0.1) 11/14/17 11:30 Absolute Nucleated RBC 0.01 x10^3/uL 11/14/17 11:30 Nucleated RBC % 0.2 /100WBC 11/14/17 11:30 Sodium 142 mmol/L (135-145) 11/14/17 11:30 Potassium 3.9 mmol/L (3.5-5.0) 11/14/17 11:30 Chloride 102 mmol/L (101-111) 11/14/17 11:30 Carbon Dioxide 32 mmol/L (21-32) 11/14/17 11:30 Anion Gap 8.0 (6-13) 11/14/17 11:30 BUN 18 mg/dL (6-20) 11/14/17 11:30 Creatinine 0.9 mg/dL (0.4-1.0) 11/14/17 11:30 Estimated GFR (MDRD) 62 (>89) L 11/14/17 11:30 Glucose 216 mg/dL (70-100) H 11/14/17 11:30 Lactic Acid 1.3 mmol/L (0.5-2.2) 11/14/17 11:30 Calcium 10.1 mg/dL (8.5-10.3) 11/14/17 11:30 B-Natriuretic Peptide 26 pg/mL (5-100) 11/14/17 11:30 - Diagnostic Imaging Results Diagnostic Imaging Results: positive: Final report reviewed Diagnostic Imaging Results Comments: Chest x-ray Impression: Interval decrease in lung volumes with interval increase in interstitial markings bilaterally. Core Measures - Anticipated LOS I expect patient to be DC'd or transferred within 96 hours.: Yes - DVT/VTE - Prophylaxis VTE/DVT Prophylaxis med ordered at admit?: Yes
[2017-11-14] MEDS ORDERED: oxyCODONE 5 MG TABLET PO PRN (23:03)
[2017-11-15] MEDS: oxyCODONE 5 MG TABLET PO SCH ×2 (00:57→05:19)
[2017-11-15] MEDS: CLINDAMYCIN 600 MG/50 ML 50 ML IV SCH ×3 (01:18→12:17)
[2017-11-15] MEDS: SODIUM CHLORIDE FLUSH 0.9% 10 ML SYRINGE IVP SCH ×2 (01:19→08:52)
[2017-11-15 06:05] LABS: BASOPHILS % (AUTO) 0.4 %; EOSINOPHILS % (AUTO) 0.2 %; HGB - HEMOGLOBIN 10.5 g/dL (12.0-16.0); LYMPHOCYTES # (AUTO) 0.3 10^3/uL (1.5-3.5); LYMPHOCYTES % (AUTO) 10.3 %; MEAN CORPUSCULAR HEMOGLOBIN 30.2 pg (27.0-31.0); MEAN CORPUSCULAR HGB CONC 34.1 g/dL (32.0-36.0); MEAN CORPUSCULAR VOLUME 88.6 fL (81.0-99.0); MEAN PLATELET VOLUME 9.3 fL (7.9-10.8); MONOCYTES # (AUTO) 0.4 10^3/uL (0.0-1.0); MONOCYTES % (AUTO) 12.8 %; NEUTROPHILS # (AUTO) 2.3 10^3/uL (1.5-6.6); NEUTROPHILS % (AUTO) 76.3 %; PLT - PLATELET COUNT 73 10^3/uL (130-450); RED BLOOD COUNT 3.49 10^6/uL (4.20-5.40); RED CELL DISTRIBUTION WIDTH 16.9 % (12.0-15.0)
[2017-11-15 06:15] LABS: CALCIUM 9.7 mg/dL (8.5-10.3); CREATININE 0.8 mg/dL (0.4-1.0)
[2017-11-15 06:18] LABS: HB2 TOTAL 10.5 g/dL; HEMOGLOBIN A1C 0.49 g/dL; HEMOGLOBIN A1C % 6.4 % (4.6-6.2)
[2017-11-15] MEDS: SODIUM CHLORIDE 0.9% 1,000 ML IV SCH (06:51)
--- NOTE | 2017-11-15 07:45 | Discharge Plan ---
"Discharge Plan for SNF / [facility] - Discharge Plan And Transition Orders Disposition: 03 SNF DC/Xfer Condition: Good Allergies and Adverse Reactions: Allergies Allergy/AdvReac Type Severity Reaction Status Date / Time No Known Drug Allergies Allergy Verified 09/06/17 15:17 - SNF / LONG-TERM Transition Orders Admit to (Facility): [facility] Under the care of (Name): Dr. Sharan Friedman Discharge Diagnosis: 1. aspiration 2. metastatic breast cancer to brain and bone 3. cognitive deficit 4. dehydration resolved. 5. dysphagia:got swallow eval - sx are not new, per son going on several months - per swallow study pt likely has reflux, also poor attention during feeding and lets food slide off her tongue down airway, rec is consider H2B, aspiration precautions, sit up to eat, nectar thick liquids and pureed food, and speech pathology eval at [facility] 6. Cancer related pain 7. Stage 1 coccyx ulcer present on admission 8. fracture of humerus Medicare Certification Statement: I do not certify that Post Hospital usp care is medically necessary on a continuing basis for any of the conditions for which she/he is receiving care during hospitalization. Notify PCP of admission and forward orders to primary provider for signature. Other Notification Orders: Call PCP immediately if patient develops dyspnea, chest pain/tightness or edema. House Bowel Program: Yes Additional Bowel Program Orders: If no BM after 2 days, nurse may give M.O.M. 30ml PO PRN and/or ducolax Supp 1 IA and/or JERZY 250mg P.O., and/or senna 1-2 tabs PO. On day 3 nurse may give repeat above order until residents constipation is resolved. Annual Influenza Vaccine (between Oct 14 and May 13): Yes Two-step PPD per [facility] [phone] or approved exception documents: Yes Medication Orders: PLEASE REFER TO THE DISCHARGE MEDICATION LIST. - Medications New Prescriptions: Amox/Clav 875/125 [Augmentin] 1 each PO Q12H #14 tablet - Diet Type: No added sugar Texture: Puree Liquids: [place] thick May have monthly special meal: No - Therapies | Activity Therapy: Evaluation | Treat if indicated: Speech, Swallowing / ST Rehabilitation Potential: Maintain present ADL Functional Activity: Activity as Tolerated Assistance Devices: Wheelchair"
[2017-11-15] MEDS ORDERED: INSULIN GLARGINE 300 UNIT/3 ML PEN SUBQ SCH ×2 (08:00→21:00)
[2017-11-15] MEDS: INSULIN ASPART 300 UNIT/3 ML PEN SUBQ SCH ×2 (08:51→12:05)
[2017-11-15] MEDS ORDERED: amLODIPine 5 MG TABLET PO SCH (09:00)
[2017-11-15] MEDS ORDERED: POLYETHYLENE GLYCOL 3350 17 GM PACKET PO SCH (09:00)
[2017-11-15] MEDS ORDERED: SERTRALINE 50 MG TABLET PO SCH (09:00)
--- NOTE | 2017-11-15 09:16 | XRAY Report ---
Reason: abnormal lung sounds p aspiration Procedure Date: 11/15/2017 Accession Number: [id number] / [id number] Procedure: XR - Chest 1 View X-Ray CPT Code: 48789 FULL RESULT: EXAM: CHEST RADIOGRAPHY EXAM DATE: 11/15/2017 09:00 AM. CLINICAL HISTORY: Abnormal lung sounds; possible aspiration. COMPARISON: Chest 1 view 11/14/2017 12:14 PM. TECHNIQUE: 1 view. FINDINGS: The radiograph is limited by single portable AP view with significant rotation. Lungs/Pleura: Again, there are increased interstitial markings which are now more prominent with Vick B lines suggestive of a combination of pulmonary edema and possible underlying lung disease. No large pleural effusion or pneumothorax. Mediastinum: Prominence of hilar bronchovascular markings is likely exacerbated by rotation. Other: Nonunited right clavicle fracture, also partially seen on the previous radiograph. IMPRESSION: Interval increase in pulmonary edema. Aspiration/pneumonia at the lung bases is not excluded. RADIA
[2017-11-15] MEDS ORDERED: SENNA 8.6 MG TABLET PO SCH (12:00)
[2017-11-15] MEDS ORDERED: DOCUSATE SODIUM 250 MG CAPSULE PO SCH (12:00)
[2017-11-15 12:02] VITALS: BP 153/80
--- NOTE | 2017-11-15 12:25 | ADVANCE CARE PLANNING NOTE ---
Advance Care Planning - Date/Time Date: 11/15/17 Time: 12:22 - Purpose of encounter Text: Clarify DARIEN desires for his mom's care - Parties in attendance Parties in attendance: Son, hospitalist, patient - Decisional capacity Decisional capacity of: moderate cognitive deficit. Can't remember immediate events, mildly encephalopathic, can't make decisions - Subjective/Patient's story Subjective/Patient's story: This irineo lady is from [place]. Is a . She was diagnosed with cancer in 2014, and has progressed in spite of surgery, radiation, and chemotherapy. By 2016 she had developed disease in her bones, her lungs, and mediastinum. And then by February 2017 she was found to have cancer in the parietal areas bilaterally. The son feels that that cancer is between the bone and the skin and not in her brain. Somewhere around that time she started not really thinking very clearly, unable to track conversation, having more more memory problems. She moved in with her son in March 2017 when she could not take care of herself anymore in [place]. She was alone in the house, and her son and grandson both work they would come home in the evening and look after her with regards to food and medicine. She began falling, and then with a fall broke her right clavicle. In the emergency room, the son told the staff that he really could not take care of her with this fall. This was on October 27. She initially went to [facility], but she was not able to Get the care she needed there and was transferred to [facility] on November 01. That day, she had been seen in the emergency room because of nausea, vomiting, and the son was worried about dehydration. He was also on that day, the Dr. Ma spoke to the oncologist, Patria Troncoso. She felt that the patient was appropriate for hospice care. But the son has not had that conversation with Dr. Troncoso and has been waiting for her to get back from vacation to sit down and talk about what options are. The son states that he is her power of trust and estates attorney. He has been making decisions for her since about March when they noticed the cognitive decline. Is been a difficult situation for him because he feels like he has to be able to "put together all the pieces" and then make decisions based on those pieces. He says he finds great difficulty in trying to understand a lot of the individual problems to then put together a big picture. He finds it frustrating that different providers have different philosophies. One doctor will say one thing and another doctor will say another. He finds that because of those differences, he does not know who to trust. With all due respect he believes what I say to him, but he does not know with Dr. Troncoso will say. While he acknowledges her definite severe decline since February of this year, he says that he cannot comprehend that the and will come. He is not ready to face that his mom may be failing enough to be close to dying in the next few weeks if not months. He feels that if he can focus on the details, somehow all of this will come together, to buy her more time. He acknowledges that she will not survive this. That all of Dr. Troncoso his goals have been geared toward palliative comfort measures. But he was hoping that he had more time. He was hoping that she had more time. Unfortunately they have never really discussed end-of-life issues. While she did give him broad scope of decision-making capacity if she were disabled, brain , or with a poor quality of life, she did not speak specifics about what she wanted. I asked if she had wanted to live in a longterm. He said he never knew. Most likely she did not but he had no choice. I asked him if she never defined quality of life issues for him? In other words, if she were completely dependent on people for her activities of daily living with regards to bathroom, bathing, and feeding did she want to be alive? He said they never talked about that. Cognitively she is too far removed from him to have a meaningful conversation with her. He does ask how she is thinking or how she is feeling. She will answer in short vague answers. But she is never spoken of her greatest regrets, fears, loves. He says that she is beyond having those chronic conversations now. He is asking if IV hydration Can be continued indefinitely. He also wondered if we could start feeding her through tube feedings. He has seen improvement in her between yesterday and today. She is more alert. And when carefully prompted is able to swallow a little bit better than yesterday. - Objective/Medical story Objective/Medical Story: Patient is a very unfortunate 72-year-old female with a past medical history significant for metastatic breast cancer, insulin-dependent diabetes, cognitive impairment, depression and urinary incontinence with recent fracture of her right clavicle and right humerus currently living at [facility] for the last week who presented to the emergency department with chief complaint of cough. The patient is unable to provide me any kind of detailed history therefore the history is provided by the patient's son and grandson as well as from medical records. The patient was initially diagnosed with stage II a breast cancer with finding of left breast mass and lumpectomy was performed in April 2014. The patient appeared to have negative margins but still underwent chemoradiation. She appeared to be in remission and then in 2016 she developed metastatic disease involving the bone, lungs, with multiple pulmonary nodules and hilar and mediastinal adenopathy. She was treated with chemotherapy and during that treatment developed sepsis requiring hospitalization which led to cognitive impairment including short-term memory loss. The patient was started on palliative paclitaxel in March 2017 and her last dose was given in August 2017. 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 She also has metastasis in the right frontotemporal region of the calvarium, with a mass involving the scalp and epidural space. She had started radiation for the T12 paraspinous tumor and a few other targeted bone metastasis and treatment was planned for 10 doses but the patient was only able to tolerate 6 doses her last treatment being 10/26/2017. The patient was living with her son up until a week ago as she started to complain of pain in her right arm and was found to have a right clavicular and right humerus fracture. According to the patient's son and grandson they are unsure if the patient fell or not as these appear to be pathological fractures. She was initially taken to [facility]. [facility] could not be her needs. The patient's son and grandson were unable to meet the patient's needs at home and she was then transferred to [facility] just a week ago. According to the patient's son the patient has been suffering with increasing nausea and vomiting over the last week. She has not been having very good oral intake. He states that she was diagnosed with a urinary tract infection and started on antibiotics but her nausea and vomiting continued. The patient has also had chronic pain due to the numerous bony metastasis for which she is being managed by palliative care and is on scheduled oxycodone as she has difficulty expressing her pain level. The patient's son states that the patient has had a chronic cough but it has been significantly worse over the last few days. He states that she has had difficulty with her swallowing for some time where she does have coughing when she swallows and also pockets food and has to be told to swallow. He states that yesterday the staff at [facility] became very concerned as the patient had significant bouts of coughing after she ate. They were concerned for possible aspiration. Today when the patient spiked a fever and continued to have coughing with a center to the emergency department. Regarding the patient's cancer the patient's son is under the impression that there is a plan for further radiation then chemotherapy once the patient regains her strength after this most recent fracture. Patient is unable to provide a conference of review of systems but at this time she denies any symptoms of pain, fever, cough, shortness of breath, chest pain, abdominal pain, nausea, vomiting or diarrhea. On presentation to the emergency department the patient was afebrile, tachycardic with a good blood pressure and saturating well on room air. The patient did have to be placed on 2 L of oxygen as her O2 sats dropped to the low 90s. The patient underwent a chest x-ray in the emergency department which revealed interstitial markings bilaterally which could be concerning for new lung disease. Given the patient's aspiration she was started on IV clindamycin. The patient's WBC was slightly low at 4.3 which is near her baseline. The patient's platelets were also low at 82 which is near her baseline and her hemoglobin was also at her baseline. Patient had no elevated lactic acid and chemistry appeared to be normal aside from an elevated glucose. The patient continued to remain tachycardic in the emergency department. The patient did undergo a swallow evaluation in the emergency department from which the patient was determined to have dysphasia and was recommended to be placed on a pured dysphagia diet with nectar thick liquid. She will put food in her mouth, and chew. But then her cognitive delay does not allow her to recognize there is food in her mouth and she will pool it in the back of her tongue, upper part of her throat. That is where her risk of aspiration happens.The patient was also given IV fluids in the emerge department however given her recent aspiration and poor oral intake it was felt that the patient would benefit from an observation stay with IV fluids and treatment for her aspiration pneumonia. - Goals of Care Goals of care determinations: His goals, until she dies, is to keep her as comfortable as possible. But he is confused, conflicted. And although he acknowledges her overall illness and the fact that she is slowly dying, feels that there should be some things we should be doing to keep her living longer. But he does not know what those things are. He just feels like there is something out there and that if he could only name it and asked for it, and we give it to her, it would make her much better. For instance he wanted IV hydration to continue indefinitely. He also wondered if we could start feeding her through tube feedings. I gently explained that that is probably not useful at this point in her health, and would go against comfort palliative measures. I reminded him to try and keep the big picture in mind. That this is a irineo, unfortunate elderly woman who has metastatic breast cancer cancer that is continued to progress and spread in severity in spite of palliative radiation and chemotherapy. That she is getting weaker, and losing her ability to think normally, and losing her reflexes to the point of forgetting how to swallow correctly. This is anticipated and expected. With that in mind, I urged him to make decisions that he think would be in her best interest. Would multiple hospitalizations Or interventions change this course of events? No. I also asked him to please follow-up with her primary care provider or her oncologist to help him make those decisions. He said he will be speaking to Adriana Pinto as well. - Plan Plan: Return to [facility] with mechanical soft, pured diet. Aspiration precautions. Continue antibiotics for the next 5-7 days. Have a phone conversation with Dr. Troncoso Have a phone conversation with Adriana Pinto - Code Status Code Status: Do Not Attempt Resuscitation - Time Spent on Advance Care Planning Time spent on advance care plannin minutes
--- NOTE | 2017-11-15 15:06 | DISCHARGE SUMMARY ---
Physician: Eleni Girard MD DATE OF ADMISSION: 11/14/2017 DATE OF DISCHARGE: 11/15/2017 DISCHARGE DIAGNOSES 1. Aspiration of secretions into respiratory tract. 2. Dysphagia. 3. Dehydration. 4. Cancer-related pain. 5. Metastatic breast cancer. 6. Humerus fracture. DISCHARGE MEDICATIONS 1. Zofran 4 mg every 4 hours as needed for nausea. 2. Roxicodone 5 mg p.o. every 4 hours p.r.n. breakthrough pain. 3. Roxicodone 5 mg p.o. t.i.d. fixed dose. 4. Norvasc 5 mg p.o. daily. 5. Lispro 0-6 units subcutaneous b.i.d. p.r.n. glucose. 6. Humulin NPH KwikPen 10 units subcutaneous b.i.d. 7. Nystatin oral solution q.i.d. swish and spit. 8. Prilosec 20 mg p.o. daily. 9. Senna 17.2 mg p.o. b.i.d. 10. Sertraline 100 mg p.o. daily. 11. Augmentin 875/125 mg p.o. t.i.d. PRINCIPAL PROCEDURES 1. Blood cultures, no growth after 1 day. 2. Swallow evaluation. 3. Chest x-ray showing interval decrease in lung volumes with interval increased interstitial markin gs from last chest x-ray. HOSPITAL COURSE: The patient is an elderly female who has metastatic breast cancer that was diagnose d in 2014. It has progressed with severity and tumor burden over the last 3 years. She is found to have pulmonary nodules, hilar adenopathy, metastasis to the bone. In February 2017, she was felt to h ave metastasis to the parietal skull. She has had definite decrease in cognitive function between [facility] to now. She moved into her son's home from [place] in March of this year. She continue d to decline in spite of palliative chemo and radiation. She fell and broke her clavicle. She was s een in the emergency room and then transferred to [facility]. [facility] was unable to meet the in tensity of her care needs and she came back to the emergency room where she was treated for nausea an d vomiting. From there, she went to [facility]. While at [facility], the patient has continued to deteriorate with regard to swallowing, cogn ition. Cognitive deficits have definitely been present since February of this year and are only getti ng worse. She has moments of lucidity, but less and less so. In this last week, her swallowing has become difficult enough that it is felt that she is aspirating. She was sent to the emergency room in spite of palliative care evaluations and Dr. Friedman' evaluati ons showing that this patient is probably most likely deteriorating from her cancer status. The son is still hoping that there will be some palliative measures given to the patient to improve her quali ty of life. In the emergency room, she is afebrile. O2 saturation is 93% on room air. Blood pressure is stable. She was described as an elderly woman who is requiring assistance of supervision for all activities of daily living. She has a very unsteady gait with impairment of cognition. She lacks understandin g and is not always aware of time and when she is. She is a high fall risk. She had diminished gretta th sounds at the lung bases, but with otherwise a mildly encephalopathic elderly woman. White cell c ount was 4.3, BUN and creatinine were normal with a random glucose of 216. BNP was 26. Swallow evaluation was done in the emergency room. She was felt to have cognitive delay causing some of this dysphagia. She would put food in her mouth, chew it when prompted to do so, but then hold i t in the back of her mouth without actually swallowing. At times, she would remember to swallow and at another times she would not. When she would remember to swallow, sometimes there was aspiration. She had nausea and emesis in the emergency room, but some of the emesis may be due to the fact that she has reflux, and again holds her food. It is felt to be a dysphagia secondary to cognitive declin e that is most likely not going to be reversible or treatable. Chest x-ray showed decreased lung vol umes with interval increase in interstitial markings from previous chest x-ray. HOSPITAL COURSE: The emergency room doctor did attempt to return the patient back to the [facility] facility. However, the admitting nurse at that time declined accepting the transfer. It is unc lear what the rationale was. The son also felt that Mom should at least be treated with IV antibioti cs and IV hydration overnight to see if she would improve. She received clindamycin IV for 3 doses. She received IV fluids for hydration. On the morning of , she was more alert, and the son was hopeful at his mom's improvement. Advanced care planning discussion was held. He readily admits that he understands that his mom is dy ing and has a terminal illness. However, he is very conflicted and hopeful that there are other andrew tment measures that can be given to give her more quality of life. He even asked if she could receiv e IV antibiotics and IV fluids at [facility] indefinitely to improve her quality of life. I did explain to him what we were finding. I explained what the swallow evaluation showed. Most lik chandan this unfortunate irineo lady is suffering the consequences of progression of her disease with pro gression of lack of cognition, lack normal of reflexes. I would anticipate she will continue to dete riorate. I do not think that IV fluids and IV antibiotics would buy her more time, much less an impr manisha quality of life. He is very fixated on the idea that his mom will "starve" to or be "thir sty." I urged him to speak to his mother's oncologist to get a clear understanding of her expected progress ion, and if he really feels that there are more palliative measures that Oncology could offer to star t seeking those soon as possible. His mom's functional decline is to the point I do not know if she will qualify for anything. PHYSICAL EXAM GENERAL: On discharge exam, she had a continued stage I decubitus ulcer on her coccyx that was prese nt on admission. She is alert, sitting up in bed, eyes open, cooperating with the nurse and son to e at her pureed diet, but she only smiles and responds to my questioning, almost nonverbal. She is in no acute distress. NECK: Supple. LUNGS: Diminished breath sounds at the bases and occasionally rhonchi developed, but I encouraged he r to deep breath and cough. She does not do the deep breathe, but does cough for me and somewhat shawna ars some of her rhonchi. She has no increased respiratory effort. HEART: PMI is normally placed with a regular rate and rhythm. ABDOMEN: Soft, nontender. EXTREMITIES: Have mild diffuse edema. The right arm is wrapped in Esau wrap and extremity at the jacquelyn ulder is deformed and not in place from her previous fracture. She is discharged in stable condition with a poor prognosis. Son will have some decisions to make ab out whether he would like to continue to keep on hospitalizing her for more interventions or proceed to more comfort measures and no more hospitalizations. TD: 11/15/2017 14:24
== END 2017-11-15 13:00 ==
LOC: EDUNIT# → ED 10:23 → OBS 18:27
PROVIDERS: ADMIT Specialist; ATTEND Specialist
DX: T17.920A Food in respiratory tract, part unspecified causing asphyxiation, initial encounter (principal); R13.10 Dysphagia, unspecified; E86.0 Dehydration; E44.0 Moderate protein-calorie malnutrition; G89.3 Neoplasm related pain (acute) (chronic); C50.912 Malignant neoplasm of unspecified site of left female breast; C79.51 Secondary malignant neoplasm of bone; C78.00 Secondary malignant neoplasm of unspecified lung; C77.1 Secondary and unspecified malignant neoplasm of intrathoracic lymph nodes; C79.2 Secondary malignant neoplasm of skin; S42.321D Displaced transverse fracture of shaft of humerus, right arm, subsequent encounter for fracture with routine healing; R05 Cough; S42.001D Fracture of unspecified part of right clavicle, subsequent encounter for fracture with routine healing; R41.89 Other symptoms and signs involving cognitive functions and awareness; L89.151 Pressure ulcer of sacral region, stage 1; Z91.81 History of falling; Z68.23 Body mass index [BMI] 23.0-23.9, adult; E11.65 Type 2 diabetes mellitus with hyperglycemia; F32.9 Major depressive disorder, single episode, unspecified; R32 Unspecified urinary incontinence; R26.9 Unspecified abnormalities of gait and mobility; I10 Essential (primary) hypertension; J44.9 Chronic obstructive pulmonary disease, unspecified; K21.9 Gastro-esophageal reflux disease without esophagitis; H54.7 Unspecified visual loss; E78.00 Pure hypercholesterolemia, unspecified; Z66 Do not resuscitate; Y92.129 Unspecified place in nursing home as the place of occurrence of the external cause; Z79.4 Long term (current) use of insulin; I05.9 Rheumatic mitral valve disease, unspecified; Z79.891 Long term (current) use of opiate analgesic; Z99.3 Dependence on wheelchair
CPT/HCPCS: 36415; 71045; 80048; 83036; 83605; 83880; 85025; 87040; 92610; 96361; 96365; 96366; 99283; 99284; A9270; G0378; J1815

== ENCOUNTER 2017-11-15 13:04 | Outpatient (CLI) | payer MEDICARE | END 2017-11-15 13:05 | LOC: EMS 13:04 | PROVIDERS: ATTEND Surgery | DX: R05 Cough (principal); R52 Pain, unspecified; R53.1 Weakness; Z74.01 Bed confinement status | CPT/HCPCS: A0425; A0428 ==

== ENCOUNTER 2017-11-16 14:15 | Outpatient (CLI) | payer MEDICARE ==
--- NOTE | 2017-11-16 20:16 | CONSULTATION NOTE ---
Palliative Care Follow Up - Referral Referring Provider: Dr. Phani Friedman Time of Visit: 3058-9153 Referral setting: Care Home Facility Referral Reason: Metastatic Breast Cancer/dysphagia/goals of care - Information Sources Records reviewed: RN notes reviewed, Previous records reviewed History/Review of Systems obtained from: Patient, Family (son Walt present for visit) Exam limitations: Clinical condition (patient with STM issue though more cognizant than previous visits) - History of Present Illness Update Brief HPI Update: This is a 72-year-old woman with metastatic breast cancer, currently not on active treatment. She is continued to decline. Including recent hospitalization for aspiration pneumonia. Unfortunately because of her right fracture in her humerus on her dominant side, she is continued to have significant pain, decline in function, and currently living in a care home. 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 She has had multiple trips to the ED secondary to dehydration, UTI, and now an observation stay for aspiration pneumonia. She received fluids and IV antibiotics with improvement of her hydration status, she did improve as far as level of alertness, and her cough is back to baseline and her respiratory distress resolved.Her pain still is difficult to control secondary to do the fracture, her care situation, and she continues to have intermittent nausea and vomiting, she had tolerated her moxicillin poorly with her UTI, will need to see how she does on the Augmentin. She has had continuous weight loss, and overall decreasing quality of life. Meeting with the son post hospitalization, he does understand his mother is deteriorating, is conflicted as far as continuing prolonging her suffering, wants to focus to be on quality of life measures. Is able to verbalize given her current physical decline would not be a candidate for further treatment. Have been reaching out to Dr. Troncoso to confirm for patient's son's peace of mind. Social History - Living Situation Living arrangement[facility] System: Patient has been at the care home for almost 2 weeks now, has been a difficult transition. Because of her declining cognitive abilities is difficult for her to communicate her needs and she was unable to be managed at home. She had moved up to her son and grandsons home both of her homework. When she was more independent there was still some difficulty but they were managing until she fell and broke her clavicle. Son is her advocate and DPOA patient is able to participate some in conversation but is not present with decision-making capacity Medications/Allergies - Medications Home Medications: Ambulatory Orders Medication Instructions Recorded Confirmed Sertraline HCl 100 mg PO DAILY 07/30/17 11/17/17 Omeprazole [PriLOSEC] 20 mg PO DAILY 10/27/17 11/17/17 amLODIPine [Norvasc] 5 mg PO DAILY 10/27/17 11/17/17 Senna [Senokot] 17.2 mg PO BID 11/04/17 11/17/17 Insulin Lispro [Humalog Kwikpen 0 - 6 units SQ BID 11/10/17 11/17/17 U-100] Nystatin 5 ml PO QID MDD 10 days 11/10/17 11/17/17 Ondansetron HCl [Zofran] 4 mg PO Q4HR PRN 11/10/17 11/17/17 oxyCODONE [Roxicodone] 5 mg PO Q4HR PRN 11/10/17 11/17/17 Amox/Clav 875/125 [Augmentin] 1 each PO Q12H #14 tablet 11/15/17 11/17/17 Insulin NPH Human Isophane 10 units SUBQ BID 11/15/17 11/17/17 [Humulin N Kwikpen] Morphine Sulfate [Morphine Sulf 5 mg SL Q4HR PRN 11/17/17 11/17/17 Oral (Roxanol)] Ondansetron [Ondansetron Odt] 4 mg PO TID 11/17/17 11/17/17 oxyCODONE [Roxicodone] 5 mg PO TID 11/17/17 11/17/17 - Allergies Allergies/Adverse Reactions: Allergies Allergy/AdvReac Type Severity Reaction Status Date / Time No Known Drug Allergies Allergy Verified 09/06/17 15:17 Review of Systems - Constitutional Constitutional: reports: Fatigue, Poor appetite, Weight loss - Eyes Eyes: reports: Vision loss, Corrective lenses - Ears, Nose & Throat Ears, Nose & Throat: reports: Hearing loss, Dry mouth - Cardiovascular Cardiovascular: reports: Decr. exercise tolerance - Respiratory Respiratory: reports: Cough (improved), SOB with exertion. denies: SOB at rest - Gastrointestinal Gastrointestinal: reports: Nausea, Vomiting, Poor appetite, Early satiety, Other (dislikes thick it water) - Genitourinary Genitourinary: reports: Incontinence - Musculoskeletal Musculoskeletal: reports: Back pain, Muscle aches, Stiffness, Limited range of motion, Muscle weakness, Transfer issues (difficult transfer secondary to pain/right fx and sling needed) - Integumentary Integumentary: reports: Dryness - Neurological Neurological: reports: General weakness, Memory problems - Endocrine Endocrine: reports: Diabetes type 2 - Hematologic/Lymphatic Hematologic/Lymphatic: reports: Anemia, Recurrent infections (recent UTI; now pneumonia) - All Other Systems All Other Systems: reports: Reviewed and negative Physical Exam - Vital Signs Temperature: 97.9 C Pulse Rate: 105 Respiratory Rate: 20 O2 Saturation: 90 (3 liters at rest) Blood Pressure: 102/62 - Physical Exam General Appearance: positive: Mild distress Eyes Bilateral: positive: Normal inspection ENT: positive: Other (candidiasis resolving) Neck: positive: No JVD, Trachea midline Cardiovascular: positive: Tachycardia Respiratory: positive: Wheezes (expiratory wheezing LLL), Rhonchi (scattered rhonchi;) Abdomen: positive: Non-tender, Soft, Nml bowel sounds Skin: positive: Pallor, Dryness, Pressure wound (not observed but on coccyx) Extremities: positive: No pedal edema, Other (very stressed with transfers) Neurologic/Psychiatric: positive: Disoriented to place, Disoriented to time, Weakness Palliative Care - POLST Patient has POLST: Yes POLST Status: DNR, Selective Treatment Pain: Pain unchanged, Location (Right arm with any kind of movement or manipulation; patient found yet again without sling. Pain has remained about the same per patient though she is not very reliable, she denies significant pain at rest but has much anticipatory fears with movement and transfers. Reports it hurts so bad it does make her nauseated.) Tiredness/Fatigue: Severe (7-10) Drowsiness/Sedation: Moderate (4-6) Nausea: Moderate (4-6), With vomiting Anorexia: Moderate (4-6), Weight loss (now with diet restrictions; working with ST, glad to have water; agreed for plan to go to dining room at this time) Sleep: Variable sleep pattern Constipation: Yes, Opoid induced, Comment (patient cannot recall; out of facililty and on constipating medication;) Performance Status: Patient a little bit more alert and interactive after fluids and stay in hospital, but remains mostly wheelchair and bedbound. She is sleeping most of the time as this is when she is most comfortable. She is totally dependent on staff for transfers and for assistance with feeding and bathing. - Palliative Care Discussion: Patient does appear very tired and withdrawn. She seems somewhat resigned to her current situation. She denies any acute distress, does perceive things is very difficult. Extensive conversation with son regarding patient's ongoing decline both functionally and cognitively. I reviewed goals of care as far as her current quality of life, does perceive that extending it via hydration or tube feedings would be extending her suffering. Did introduce, concept and the hospice team. With the focus to be on comfort, increased layer of support and comfort here at the care home, and to be able to oversee her ongoing decline. Education provided that patient does not need to be imminently dying, but goals would need to be comfort and no further return to the hospital. His conflication often have to do with his conversations with his younger son Ronaldo, son is coming to a place that may be able to accept this in near future. He does not perceive his mother is having any quality of life, that she is not improving, and worried about extending her suffering. Results - Lab Results Lab results reviewed: Yes Impression and Recommendations - Palliative Care Impression: This is a 72-year-old woman with metastatic breast cancer to the bones, lungs, and lymph nodes. She is recently had an acute aspiration resulted in pneumonia, has dysphagia, on aspiration precautions and altered diet, and continues to struggle with the sequela of her right humeral fracture. Goals are to focus on comfort and improving quality of life, Patient does continue to have weight loss, now with second infection within a few weeks, weight loss, and both functional and cognitive decline. Patient at this point in time would meet hospice criteria, have introduced this is a possibility to her son. Palliative care to continue provide support for pain and symptom management and anticipatory guidance. Recommendations/Counseling Done: 1. Acute on chronic pain secondary to humeral fracture and bony metastases. Patient currently on scheduled oxycodone 5 mg 3 times daily, with as needed breakthrough pain medication she also has morphine 5 mg available if patient unable to swallow or take tablets. Patient's pain is mostly with movement and on transfers, have yet again reemphasized need for sling for all transfers, and listed the help of the manager agency to locate a sling, put on patient, much relief of weight on arm with decreased pain sensation. Sign was put up on top of patient's bed to be able to remind staff needed for all transfers. 2. Nausea and vomiting. Last latest vomiting episode was triggered by drinking cold water with a straw, will take sips from cup. Patient still at risk for dehydration. Patient tolerated amoxicillin poorly, will need to evaluate how she does on Augmentin. Continue to offer frequent sips of fluid as patient unable to initiate this on her own. Consult with speech therapy, regarding ability to improve patient's intake and decreased isolation with eating, will try and have her in the dining room for assistance. Patient unable to self-feed without cueing and encouragement. 3. Pneumonia. Patient remains at high risk for recurrent aspiration, particularly as her level of consciousness and cognitive alertness declines. Patient's O2 sats are fairly low, patient is a very shallow breather. Patient's only few wheezes, may consider albuterol treatments if not improved./Or respiratory distress. 4. Advanced care planning. Son did have a chance to follow-up with hospitalist and advanced care planning session, is able to verbalize does want to focus on comfort and quality of life and not extend suffering. Remains somewhat conflicted, do have a call out to Dr. Troncoso hoping she will reach out to his son to confirm support for transitioning to hospice. Counseling provided regarding hospice and hospice benefit in the context of support in the care home. Patient status has been fluctuating, suspect he will continue to decline, will recommend if patient deteriorates further, she currently does meet criteria but would need to be in alignment with the son's goals Time Spent: 60 minutes with greater than 50% of this done in counseling regarding goals of care, coordination of staff regarding pain and symptom management and anti cipatory guidance
== END 2017-11-16 14:16 | disposition home or self-care (01) ==
LOC: PC 14:15
PROVIDERS: ATTEND Nurse Practitioner Adult Health
DX: Z51.5 Encounter for palliative care (principal); G89.3 Neoplasm related pain (acute) (chronic); R41.0 Disorientation, unspecified; R09.02 Hypoxemia; C50.912 Malignant neoplasm of unspecified site of left female breast; C78.00 Secondary malignant neoplasm of unspecified lung; C77.1 Secondary and unspecified malignant neoplasm of intrathoracic lymph nodes; C79.51 Secondary malignant neoplasm of bone; R11.2 Nausea with vomiting, unspecified; K59.03 Drug induced constipation; T40.2X5D Adverse effect of other opioids, subsequent encounter; L89.151 Pressure ulcer of sacral region, stage 1; R63.0 Anorexia; R13.10 Dysphagia, unspecified; B37.0 Candidal stomatitis; F32.9 Major depressive disorder, single episode, unspecified; R41.81 Age-related cognitive decline; E11.9 Type 2 diabetes mellitus without complications; R32 Unspecified urinary incontinence; S49.81XD Other specified injuries of right shoulder and upper arm, subsequent encounter; H54.7 Unspecified visual loss; H91.90 Unspecified hearing loss, unspecified ear; Z66 Do not resuscitate; Z79.891 Long term (current) use of opiate analgesic; Z79.4 Long term (current) use of insulin; Z91.81 History of falling; Z79.899 Other long term (current) drug therapy
CPT/HCPCS: 99310